=== PATIENT | female | born 1995 | race Caucasian/White ===

== ENCOUNTER 2022-09-08 00:41 | Day surgery (SDC) | payer OTHER, SELFPAY ==
[2022-09-07 08:31] VITALS: BMI 23.3
--- NOTE | 2022-09-07 08:35 | PC.NURSE ---
Report to the Outpatient Waiting Room, entrance under the green pavilion located off [facility], at time 1200 on date 09/08/22. Planned Procedure Time: 1400. Time changes happen often and if your time is changed the preop area will call you the afternoon before. - You and your visitor will be asked to self-screen and do not enter if you have any COVID symptoms. - We encourage only one visitor and NO visitors under age 16 are allowed at this time. Your visitor will receive communication by the phone number that is given day of service. - The patient visitor is requested to social distance or may leave the building when not with patient due to restrictions. - A mask is OPTIONAL within the hospital. Patients may have clear liquids (water, carbonated beverages, clear teas, apple juice) until 3 hours prior to surgery with a maximum of 20 ounces. - No food from midnight until time of surgery Take the following medications with a SIP of water the morning of surgery: NONE Medications to discontinue per physician: VITAMIN Date to take last dose: NO MORE UNTIL AFTER SURGERY Please no make-up, nail frisian, hairspray, perfume, deodorant, or body powder the day of surgery. No jewelry (including any body piercings) or valuables the day of surgery, leave them at home. Please take a shower or bath the night before, or the morning of, surgery with an antibacterial soap. Wear comfortable, loose fitting clothing. - Jewelry must be removed prior to entering the operating room. Rings and piercings that are not removed may be cut off. - The hospital will not accept responsibility for valuables. - Please leave all valuables, including medications, at home the day of surgery. If you are going home after surgery, a licensed petroleum transport driver must drive you home. - NO public transportation without another adult. - We recommend that an adult stay with you for 24 hours following discharge. - We also recommend that you do not drive, make important decision, drink alcoholic beverages, or take any drugs that were not prescribed by your health care provider for at least 24 hours after your discharge time. Follow any additional instructions given to you from your surgeon. If you or anyone in your household have experienced Covid symptoms in the past week, please notify your surgeon or the nurse liaison at the phone number below for possible testing. Telephone instructions given to PT - SUMIT AKBAR and asked if any additional questions and then verbalized understanding. Patient advised to call surgeon office or pre surgery nurse liaison [phone] if any additional questions.
--- NOTE | 2022-09-07 10:16 | PM.IMHP ---
H&P: HPI History of Present Illness Date/Time: 09/07/22 10:16 Chief Complaint: 1st trimester missed A/B Narrative: is a 26-year-old 1 para 0 with a missed A/B confirmed by ultrasound. Risks and benefits reviewed in full of suction dilatation curettage. [facility] Past Medical History Medical History Allergic rhinitis Anxiety Depression Dysuria Iron deficiency anemia Mild intermittent asthma without complication Pica in adults Urinary tract infection symptoms Vitamin D deficiency Family History Family History Father Depression Hypertension Sibling Asthma Social History Social History Smoking status: Never smoker Alcohol intake: former Alcohol use details: NOT RECENTLY Substance use: never Substance use type: does not use Living arrangements: with family Spiritual care concerns: No Meds Home Medications and Allergies Home Medications Medication Instructions Recorded Confirmed Type docosahexaenoic acid 200 mg 200 mg PO DAILY 09/07/22 09/07/22 History capsule ( DHA) Allergies Allergy/AdvReac Type Severity Reaction Status Date / Time clavulanic acid Allergy Intermediate RASH Verified 09/07/22 08:30 sulfamethoxazole Allergy Intermediate RASH Verified 09/07/22 08:30 amoxicillin Allergy Unknown unknown Verified 09/07/22 08:30 sulfamethizole Allergy Unknown unknown Verified 09/07/22 08:30 trimethoprim Allergy Unknown unknown Verified 09/07/22 08:30 Exam Const: General: cooperative, healthy appearing and comfortable Nutritional Appearance: average body habitus Orientation/consciousness: oriented to person, oriented to place and oriented to time Chest: Chest palpation & inspection: normal inspection of the chest Resp: Effort & Inspection: normal respiratory effort Cardio: Rate: regular rate Rhythm: regular rhythm Heart sounds: S1 normal heart sound present and S2 normal heart sound present GI: Inspection: normal to inspection : External Female Exam: normal external appearance Speculum Exam - Cervix: normal appearance of the cervix Bimanual exam- vagina & uterus: enlarged Bimanual Exam- Adnexa, other: normal adnexae Assessment and Plan Assessment and plan (1) Missed : Code(s): O02.1 - Missed Status: Acute Plan suction dilatation curettage
--- NOTE | 2022-09-08 10:04 | WPDANESEPPF ---
Anes - Initial Pre Proc Eval Procedure: Operation Date: 09/08/22 14:00 Proposed Procedures p Suction Dilation and Curettage - Collins Camacho MD <Josesito Barboza MD - Last Filed: 09/09/22 10:46> Date/Time: 09/08/22 10:04 <Josesito Barboza MD - Last Filed: 09/09/22 10:46> Surgeon: Collins Camacho MD <Josesito Barboza MD - Last Filed: 09/09/22 10:46> Pre Op Diagnosis: Missed AB <Josesito Barboza MD - Last Filed: 09/09/22 10:46> Patient Data Age: 26 Gender: F Height: 1.68 m Weight: 65.77 kg <Josesito Barboza MD - Last Filed: 09/09/22 10:46> Allergies Allergy/AdvReac Type Severity Reaction Status Date / Time clavulanic acid Allergy Intermediate RASH Verified 09/07/22 08:30 sulfamethoxazole Allergy Intermediate RASH Verified 09/07/22 08:30 amoxicillin Allergy Unknown unknown Verified 09/07/22 08:30 sulfamethizole Allergy Unknown unknown Verified 09/07/22 08:30 trimethoprim Allergy Unknown unknown Verified 09/07/22 08:30 <Josesito Barboza MD - Last Filed: 09/09/22 10:46> Home Medications Medication Instructions Recorded Confirmed Type docosahexaenoic acid 200 mg 200 mg PO DAILY 09/07/22 09/07/22 History capsule ( DHA) doxycycline hyclate 100 mg tablet 100 mg PO BID #6 tabs 09/08/22 Rx hydrocodone 5 mg-acetaminophen 325 1 tablet PO Q4H PRN pain #20 tabs 09/08/22 Rx mg tablet <Josesito Barboza MD - Last Filed: 09/09/22 10:46> Patient hx anesthesia problems: none <Eh Huston MD - Last Filed: 09/08/22 12:32> Family hx anesthesia problems: none <Eh Huston MD - Last Filed: 09/08/22 12:32> Results Review: All pre-operative results and documents have been reviewed as part of the pre-operative evaluation. <Josesito Barboza MD - Last Filed: 09/09/22 10:46> PMFSH Past Medical History Medical History: Medical History Allergic rhinitis Anxiety Depression Dysuria Iron deficiency anemia Mild intermittent asthma without complication Pica in adults Urinary tract infection symptoms Vitamin D deficiency <Josesito Barboza MD - Last Filed: 09/09/22 10:46> Family History Family History: Family History Father Depression Hypertension Sibling Asthma <Josesito Barboza MD - Last Filed: 09/09/22 10:46> Social History Social History: Social History Smoking status: Never smoker Alcohol intake: former Alcohol use details: NOT RECENTLY Substance use: never Substance use type: does not use Living arrangements: with family Spiritual care concerns: No <Josesito Barboza MD - Last Filed: 09/09/22 10:46> Anes - Eval Final PreProcedure Day of Procedure 09/08/22 10:04 <Josesito Barboza MD - Last Filed: 09/09/22 10:46> Patient weight: normal <Josesito Barboza MD - Last Filed: 09/09/22 10:46> Heart: regular rate and rhythm <Josesito Barboza MD - Last Filed: 09/09/22 10:46> Lungs: clear to auscultation and normal air movement <Josesito Barboza MD - Last Filed: 09/09/22 10:46> Airway: Mallampati scale class II <Josesito Barboza MD - Last Filed: 09/09/22 10:46> Neurological: alert and oriented <Josesito Barboza MD - Last Filed: 09/09/22 10:46> Last oral intake: >/= 8 hours <Josesito Barboza MD - Last Filed: 09/09/22 10:46> ASA classification: II <Josesito Barboza MD - Last Filed: 09/09/22 10:46> Emergent: no <Josesito Barboza MD - Last Filed: 09/09/22 10:46> Anesthetic plan: proceed <Josesito Barboza MD - Last Filed: 09/09/22 10:46> Anesthesia type and monitoring: general GIVS and LMA <Josesito Barboza MD - Last Filed: 09/09/22 10:46> Results Review: All pre-operative results and documents have been reviewed as part of t
--- NOTE | 2022-09-08 12:11 | WPDHPUPDATE1 ---
History and Physical Update Update Date/Time: 09/08/22 12:11 History and Physical has been reviewed, including an updated exam of the patient. There are NO changes in the patient's condition. Risks, benefits, and alternatives have been discussed and questions answered. Patient agrees to proceed with procedure.
[2022-09-08] MEDS: LACTATED RINGERS 1,000 ML 30 ML IV CONT (12:45)
[2022-09-08] MEDS: fentaNYL CITRATE INJ (*CRX) 100 MCG/2 ML VIAL 25 MCG IV PUSH ×4 (12:50→14:51)
[2022-09-08] MEDS: ACETAMINOPHEN 500 MG TABLET 1000 MG PO (12:50)
[2022-09-08 12:57] LABS: Hematocrit 40.4 % (37.0-47.0); Hemoglobin 13.7 g/dL (12.0-15.0)
[2022-09-08 13:17] VITALS: BP 118/65; PULSE 72; RESP 14; TEMP 37.7; O2SAT 100
[2022-09-08] MEDS: LIDOCAINE HCL 1% PF 30 ML VIAL 10 ML INFILTRATE (13:38)
--- NOTE | 2022-09-08 13:49 | W.PM.PROC2 ---
Procedure Note - Detailed Date of Procedure 09/08/22 Pre-op Diagnosis Missed AB Post-op Diagnosis Same Procedure Performed Suction dilatation curettage Surgeon Collins Camacho MD Anesthesia MAC and Local Indications a 26-year-old with first-trimester missed A/B Findings uterus sounded to 10cm. Tissue consistent with products of conception was present Description of Procedure patient was prepped draped in normal sterile fashion placed in the dorsal lithotomy position. Under excellent IV sedation weighted speculum placed posterior fornix vagina. Anterior lip of the cervix grasped with a single-tooth tenaculum. 2.5cc 1% xylocaine anesthesia placed at 2, 4, 8, 10 the cervix. Uterus sounded to 10cm. Serial dilatation with fragmented dilators performed followed by passage of the 10. Suction curette removing a moderate amount of placental tissue. When no further tissue removed the instruments were withdrawn. The good grating sound was heard the instruments were passed off the table patient was awakened went to recovery in satisfactory condition. All sponge, needle, instrument counts were correct. There were no immediate complications Estimated Blood Loss 25 Drains No Packing No Pathology Yes Complications No immediate complications Condition Stable Disposition PACU
[2022-09-08 13:53] VITALS: BP 113/67; PULSE 93; RESP 16; TEMP 37.3; O2SAT 99
[2022-09-08] MEDS: oxyCODONE HCL (*CRX) 5 MG TAB IR PO (14:14)
[2022-09-08 14:20] VITALS: BP 106/65; PULSE 93; RESP 16; O2SAT 100
--- NOTE | 2022-09-08 14:39 | SUR.PHASEII ---
PT IS O POSITIVE AND NO RHOGAM IS NEEDED
[2022-09-08 14:50] VITALS: BP 115/65; PULSE 79; RESP 16; O2SAT 99
[2022-09-08] MEDS: DOXYCYCLINE HYCLATE 100 MG TABLET PO (15:25)
== END 2022-09-08 15:15 | disposition home or self-care (01) ==
PROVIDERS: PCP Emergency Medicine; Visit Provider Obstetrics & Gynecology
PROC: (CPT 59820; principal; 2022-09-08 14:00)
DX: O02.1 Missed abortion (principal)
CPT/HCPCS: 59820; 36415; 85014; 85018; 85461; 88305; A9270; J2250; J2405; J2704; J3010; J7120

== ENCOUNTER 2022-09-12 12:03 | Emergency (ER) | payer OTHER, SELFPAY ==
[2022-09-12 12:28] VITALS: BP 130/82; PULSE 101; RESP 16; TEMP 36.4; O2SAT 100
--- NOTE | 2022-09-12 14:08 | ED.GENADULT ---
HPI - General Adult General Chief complaint: Allergic Reaction Stated complaint: Rash on abd, Time Seen by Provider: 09/12/22 12:47 History of Present Illness HPI narrative: This is a 26-year-old female presenting ED with a rash to her torso. Patient's symptoms started approximately last Monday. She underwent AD and C for a miscarriage . On Monday she still had the rash that she went to an urgent care and was prescribed some steroids. Monday she saw a different doctor who also give her a burst of steroids. The red rash has continued to spread and is itchy. Other than the rash the patient has no physical complaints. She denies any new exposures. She does state that she has sensitive skin. She denies any mucosal involvement. Related Data Home Medications Medication Instructions Recorded Confirmed docosahexaenoic acid 200 mg 200 mg PO DAILY 09/07/22 09/07/22 capsule ( DHA) Allergies Allergy/AdvReac Type Severity Reaction Status Date / Time clavulanic acid Allergy Intermediate RASH Verified 09/07/22 08:30 sulfamethoxazole Allergy Intermediate RASH Verified 09/07/22 08:30 amoxicillin Allergy Unknown unknown Verified 09/07/22 08:30 sulfamethizole Allergy Unknown unknown Verified 09/07/22 08:30 trimethoprim Allergy Unknown unknown Verified 09/07/22 08:30 Review of Systems Review of Systems: CONSTITUTIONAL: Denies night sweats. EYES: No eye pain ENT: Denies rhinorrhea CARDIOVASCULAR: Denies palpitations RESPIRATORY: Denies hemoptysis GASTROINTESTINAL: Denies hematemesis GENITOURINARY: Denies hematuria. SKIN: Admits rash MUSCULOSKELETAL: Denies myalgia. NEUROLOGIC: Denies weakness. PSYCHIATRIC: Denies delusions PMFSH Past Medical History Medical History Allergic rhinitis Anxiety Depression Dysuria Iron deficiency anemia Mild intermittent asthma without complication Pica in adults Urinary tract infection symptoms Vitamin D deficiency Family History Family History Father Depression Hypertension Sibling Asthma Social History Social History Smoking status: Never smoker Alcohol intake: former Alcohol use details: NOT RECENTLY Substance use: never Substance use type: does not use Spiritual care concerns: No Exam Narrative: APPEARANCE: No apparent distress. Head atraumatic. EYES: PERRLA/EOMI, NOSE: Normal no drainage NECK: Supple, Trachea midline RESPIRATORY: CTAB, No increased work of breathing. CARDIOVASCULAR: S1S2 appreciated ABDOMINAL: Soft, nontender, nondistended, MUSCULOSKELETAl: No obvious deformities NEURO: Alert. Moving 4/4 extremities SKIN:: patient has a erythematous confluent rash over her flanks bilaterally. PSYCHIATRIC: Normal affect Course Vital Signs Vital signs: Vital Signs Temperature 97.6 F 09/12/22 12:28 Pulse Rate 101 H 09/12/22 12:28 Respiratory Rate 16 09/12/22 12:28 Blood Pressure 130/82 09/12/22 12:28 Pulse Oximetry 100 09/12/22 12:28 Oxygen Delivery Room Air 09/12/22 12:28 Temperature 97.6 F 09/12/22 12:28 Pulse Rate 101 H 09/12/22 12:28 Respiratory Rate 16 09/12/22 12:28 Blood Pressure 130/82 09/12/22 12:28 Pulse Oximetry 100 09/12/22 12:28 Oxygen Delivery Room Air 09/12/22 12:28 Medical Decision Making [facility] Narrative Medical decision making narrative: this is a 26-year-old female presenting with an urticarial rash for the last week and half. She has no known triggers. She did have a miscarriage over the last week. She is not appear to be anaphylactic. There is no mucosal involvement. Her vital signs are stable and she is well-appearing otherwise.There are cases reported of urticarial rashes following due to hormonal changes. Patient has received several courses of steroids with no benefit she khang
[2022-09-12] MEDS: diphenhydrAMINE HCl CAP 25 MG CAPSULE PO (14:11)
[2022-09-12 14:32] LABS: Basophils Percent Auto 0.3 % (0.2-1.2); Eosinophils Absolute Auto 0.5 K/mm3 (0-0.3); Eosinophils Percent Auto 4.7 % (0-4.4); Hematocrit 39.4 % (37.0-47.0); Hemoglobin 12.9 g/dL (12.0-15.0); Immature Granulocyte Absolute 0.06 K/mm3 (0.00-0.031); Immature Granulocyte Percent A 0.6 % (0-0.5); Mean Corpuscular HGB Conc 32.7 g/dl (32-36); Mean Corpuscular Hemoglobin 30.7 pg (26-34); Mean Corpuscular Volume 93.8 fl (80-100); Monocytes Absolute Auto 0.3 K/mm3 (0.1-0.6); Neutrophils Absolute Auto 7.9 K/mm3 (1.3-6.7); Neutrophils Percent Auto 78.4 % (45.5-73.1); Platelet Count Result 256 k/mm3 (150-375)
[2022-09-12 14:38] LABS: Alanine Aminotransferase 73 U/L (6-35); Albumin Level 4.4 g/dL (3.5-5.1); Alkaline Phosphatase 65 U/L (38-126); Anion Gap 12 mmol/L (8-16); Aspartate Amino Transferase 52 U/L (14-36); Bilirubin,Total 0.3 mg/dL (0.2-1.3); Blood Urea Nitrogen 17 mg/dL (7-17); Calcium 8.7 mg/dL (8.4-10.2); Carbon Dioxide 28 mmol/L (22-30); Chloride 100 mmol/L (98-107); Estimated CRCL calculation 99 ml/min; Estimated Glomerular Filt Rate > 60; Glucose 114 mg/dL (65-110); Magnesium 2.1 mg/dL (1.6-2.3); Potassium 3.7 mmol/L (3.4-5.0); Sodium 140 mmol/L (137-145)
== END 2022-09-12 15:23 | disposition home or self-care (01) ==
PROVIDERS: Emergency Provider Emergency Medicine; PCP Emergency Medicine
DX: J45.20 Mild intermittent asthma, uncomplicated (principal); Z87.440 Personal history of urinary (tract) infections; E55.9 Vitamin D deficiency, unspecified; Z86.2 Personal history of diseases of the blood and blood-forming organs and certain disorders involving the immune mechanism
CPT/HCPCS: 36415; 80053; 83735; 85025; 99283; A9270

== ENCOUNTER 2023-06-05 19:25 | Outpatient (CLI) | payer OTHER, SELFPAY ==
[2023-06-05 20:23] LABS: Basophils Percent Auto 0.3 % (0.2-1.2); Eosinophils Absolute Auto 0.1 K/mm3 (0-0.3); Eosinophils Percent Auto 0.7 % (0-4.4); Hemoglobin 10.8 g/dL (12.0-15.0); Immature Granulocyte Absolute 0.04 K/mm3 (0.00-0.031); Immature Granulocyte Percent A 0.3 % (0-0.5); Lymphocytes Absolute Auto 2.83 K/mm3 (0.9-3.2); Lymphocytes Percent Auto 24.1 % (18.3-44.2); Mean Corpuscular HGB Conc 33.8 g/dl (32-36); Mean Corpuscular Hemoglobin 31.4 pg (26-34); Mean Platelet Volume 11.5 fl (7.4-10.4); Monocytes Absolute Auto 0.6 K/mm3 (0.1-0.6); Monocytes Percent Auto 4.7 % (2.6-8.5); Neutrophils Absolute Auto 8.2 K/mm3 (1.3-6.7); Neutrophils Percent Auto 69.9 % (45.5-73.1); Platelet Count Result 202 k/mm3 (150-375); Red Blood Count 3.44 M/mm3 (4.2-5.4); Red Cell Distribution Width 12.6 % (11.5-14.5); White Blood Count 11.7 K/mm3 (4.5-10.0)
[2023-06-05 20:30] LABS: Alanine Aminotransferase 17 U/L (6-35); Albumin Level 3.5 g/dL (3.5-5.1); Alkaline Phosphatase 66 U/L (38-126); Anion Gap 7 mmol/L (8-16); Aspartate Amino Transferase 23 U/L (14-36); Bilirubin,Total 0.2 mg/dL (0.2-1.3); Blood Urea Nitrogen 9 mg/dL (7-17); Carbon Dioxide 24 mmol/L (22-30); Chloride 104 mmol/L (98-107); Estimated Glomerular Filt Rate > 60; Glucose 91 mg/dL (65-110); Potassium 3.3 mmol/L (3.4-5.0); Sodium 135 mmol/L (137-145); Uric Acid 4.7 mg/dL (2.5-7.5)
[2023-06-05 20:35] LABS: Creatinine Urine 67.9 mg/dL; Total Protein Urine Random 13 mg/dL; Ur Ttl Prot Creatinine Ratio 0.19 mg/mg (0-0.20)
[2023-06-05] MEDS: BELLADONNA ALK/PHENOB ELIX 10 ML, MAG HYDROX/ALUMINUM HYD/SIMETH 30 ML, LIDOCAINE HCL 2... PO (21:00)
[2023-06-05 21:15] LABS: Appearance Urine Clear (Clear); Bilirubin Urine Negative (Negative); Blood Urine Negative (Negative); Color Urine Yellow (Yellow); Glucose Urine UA Negative (Negative); Ketones Urine Negative (Negative); Leukocyte Esterase Ur Negative LEU/UL (NEGATIVE); Nitrate Urine Negative (Negative); Protein Urine Negative (Negative); Specific Grav Ur 1.014 (1.001-1.035); Urobilinogen Urine 0.2 mg/dL (<2.0); pH Urine 6.5 (5.0-9.0)
[2023-06-05 21:22] LABS: Add Urine Microscopic? NO
--- NOTE | 2023-06-05 21:38 | PC.NURSE ---
1924 Pt arrived to unit after talking to Dr Higginbotham and being told to be evaluated. Pt states she has tried pepcid, nexium, tums, and peptobismol with no relief from her epigastric pain and that she vomited around 1800 but has kept food down since then. Pt has no complaints. 2011 Dr Cayden Camacho paged at this time 2015 Dr Cayden Camacho is informed of patient arrival and that Urine with PIH labs has been sent to lab. Dr Higginbotham said something to the patient about a possible ultrasound and Dr Cayden Camacho orders that if patient has already eaten she will need to return tomorrow with an empty stomach for a RUQ US and to schedule that, orders received for GI Cocktail PO once and to call back with lab results. 2103 Dr Cayden Camacho paged at this time 2107 Dr Cayden Camacho informed of lab results and that US is being scheduled and GI Cocktail administered. Orders to discharge pt to home and to keep appointment and get US tomorrow. 2114 Pt discharged to home with instruction to follow up in office with scheduled appointment and to return to hospital for US at 1030 tomorrow morning. Pt verbalizes understanding.
== END 2023-06-05 21:15 | disposition home or self-care (01) ==
PROVIDERS: PCP Emergency Medicine; Visit Provider Obstetrics & Gynecology
DX: O13.9 Gestational [pregnancy-induced] hypertension without significant proteinuria, unspecified trimester (principal); Z3A.00 Weeks of gestation of pregnancy not specified
CPT/HCPCS: 36415; 80053; 81003; 82570; 84156; 84550; 85025; 87086; 87088; 87147; A9270

== ENCOUNTER 2023-06-06 10:42 | Outpatient (CLI) | payer OTHER, SELFPAY ==
--- NOTE | ~2023-06-06 | US_ITS ---
Limited Abdominal Sonogram: Real-time sonographic imaging of the right upper quadrant was performed. Clinical History: Right upper quadrant pain Findings: The liver appears normal with no evidence of mass lesion or bile duct dilatation. Main por gutierrez vein demonstrates normal direction of flow. The gallbladder is well distended, and appears normal with no evidence of gallstone or wall thickening. The common bile duct measures 4 mm. The visualize d pancreas, aorta, and IVC are unremarkable. Impression: No significant abnormality seen. Reviewed, dictated and finalized at location M. Impression: No significant abnormality seen.
== END 2023-06-06 10:43 | disposition home or self-care (01) ==
LOC: ANHIMG 10:49
PROVIDERS: PCP Emergency Medicine; Visit Provider Obstetrics & Gynecology
DX: K82.9 Disease of gallbladder, unspecified (principal); R10.11 Right upper quadrant pain
CPT/HCPCS: 76705

== ENCOUNTER 2023-10-10 07:47 | Outpatient (CLI) | payer OTHER, SELFPAY ==
[2023-10-10 08:15] LABS: Hematocrit 33.9 % (37.0-47.0); Hemoglobin 10.5 g/dL (12.0-15.0); Mean Corpuscular Hemoglobin 26.4 pg (26-34); Mean Corpuscular Volume 85.2 fl (80-100); Mean Platelet Volume 11.7 fl (7.4-10.4); Platelet Count Result 222 k/mm3 (150-375); Red Blood Count 3.98 M/mm3 (4.2-5.4); Red Cell Distribution Width 13.9 % (11.5-14.5); White Blood Count 9.4 K/mm3 (4.5-10.0)
[2023-10-11 10:49] LABS: Rapid Plasma Reagin Non-Reactive (NonReactive)
== END 2023-10-10 07:48 | disposition home or self-care (01) ==
LOC: ANHLAB 07:48
PROVIDERS: PCP Emergency Medicine; Visit Provider Obstetrics & Gynecology
DX: Z34.93 Encounter for supervision of normal pregnancy, unspecified, third trimester (principal); Z3A.00 Weeks of gestation of pregnancy not specified
CPT/HCPCS: 36415; 85027; 86592; 86850; 86900; 86901

== ENCOUNTER 2023-10-11 05:29 | Inpatient (IN) | payer OTHER, SELFPAY ==
--- NOTE | 2023-10-10 06:24 | P.HP_ITS ---
H&P: HPI History of Present Illness Date/Time: 10/10/23 06:24 Chief Complaint: Breech presentation at term Narrative: this is a 27-year-old 2 para 039 weeks gestation breech presentation for primary section. She was offered external version and declined risks and benefits of section were reviewed in great detail. Her has been otherwise unremarkable [facility] Past Medical History Medical History Allergic rhinitis Anxiety Depression Dysuria Iron deficiency anemia Mild intermittent asthma without complication Pica in adults Urinary tract infection symptoms Vitamin D deficiency Family History Family History Father Depression Hypertension Sibling Asthma Social History Social History Smoking status: Never smoker Alcohol intake: former Alcohol use details: NOT RECENTLY Substance use: never Substance use type: does not use Living arrangements: with family Spiritual care concerns: No Meds Home Medications and Allergies Home Medications Medication Instructions Recorded Confirmed Type docosahexaenoic acid 200 mg 200 mg PO DAILY 09/07/22 09/07/22 History capsule ( DHA) cholecalciferol (vitamin D3) 50 50 mcg PO DAILY 09/21/23 09/21/23 History mcg (2,000 unit) capsule (Vitamin D3) prenat.vits,akanksha,fxb-tuuo-axsfh tablet 09/21/23 History Allergies Allergy/AdvReac Type Severity Reaction Status Date / Time clavulanic acid Allergy Intermediate RASH Verified 09/21/23 15:28 Exam Const: General: cooperative, healthy appearing and comfortable Nutritional Appearance: average body habitus Orientation/consciousness: oriented to person, oriented to place and oriented to time HENMT: Head: normal to inspection Resp: Effort & Inspection: normal respiratory effort Cardio: Rate: regular rate Rhythm: regular rhythm Heart sounds: S1 normal heart sound present and S2 normal heart sound present GI: Inspection: normal to inspection ( gravid soft uterus) Assessment and Plan Assessment and plan (1) Term : Code(s): Z34.90 - Encounter for supervision of normal , unspecified, unspecified trimester Status: Acute (2) Breech presentation: Code(s): O32.1XX0 - Maternal care for breech presentation, not applicable or unspecified Status: Acute Plan primary section
[2023-10-11] VITALS (42 sets, daily range): BP systolic 78–123; BP diastolic 38–99; PULSE 62–137; RESP 16–20; TEMP 36.2–37.4; O2SAT 98–100; BMI 30.9
--- NOTE | 2023-10-11 06:12 | WPDHPUPDATE1 ---
History and Physical Update Update Date/Time: 10/11/23 06:12 History and Physical has been reviewed, including an updated exam of the patient. There are NO changes in the patient's condition. Risks, benefits, and alternatives have been discussed and questions answered. Patient agrees to proceed with procedure.
--- NOTE | 2023-10-11 06:19 | LDADM ---
This patient, Margo Montenegro, was admitted to Labor/Delivery/Recovery 120 on 10/11/23 at 05:29. Plans for labor, pain management and were discussed with patient. Patient/family oriented to hospital policies and general routines including ID bracelet, bed and alarms, visiting hours, pain management, procedures, bathroom and other care routines, personal items, smoking policy, room service/diet and guest tray routines, security routines, and visiting hours. Patient/Family are encouraged to report perceived risks to care and to ask questions if they do not understand what they are told or what they should do. See OBIX for further documentation.
[2023-10-11] MEDS: LACTATED RINGERS 1,000 ML 125 ML IV CONT (06:54)
[2023-10-11] MEDS: ceFAZolin 2 GM/D5W 50 ML 2 GM/50 ML BAG IVPB (07:19)
--- NOTE | 2023-10-11 08:11 | P.PCNOB_ITS ---
OB - Delivery Note Procedure Delivery date: 10/11/23 Pre-op diagnosis: Other (Breech) Post-op Diagnosis: Same Induction method: None Delivery monitor: External FHT Procedure Performed: Primary Surgeon: Collins Camacho MD Anesthesia type: Spinal Description of Procedure/Findings: patient was prepped and draped in sterile fashion placed in spine position. Under anesthetic the abdomen was entered in Pfannenstiel fashion progressive layers to fascia. Fascia incised midline carried out fashion bilaterally. Underlying muscles sharply dissected. Parietal peritoneum a by Romi clamps and by sharp dissection carried superiorly and inferiorly dome bladder blade placed bladder blade returned a low-transverse incision made the breech delivered to. Legs were swept medially the arms were swept medially and the head delivered in the flexed position. Patient passed off the table given Apgars of 9 [id number] 9 [id number]. Cord blood was drawn placenta intact manually. Uterus delivered from the abdomen wrapped in a moist towel. After assuring no membranes or debris remained in the uterus, the uterus closed continuous running locking Vicryl from lateral edge to lateral edge followed by 2nd imbricating running locking 0 Vicryl from lateral edge to lateral edge. Hemostasis was assured. The ovaries and tubes appeared within normal limits uterus returned the abdomen. Uterine incision inspected 1 last time noted hemostatic and sprinkled with [place] term. Laps removed and accounted for. The fascia closed with continuous running 0 Vicryl from lateral edge to lateral edge. The subcutaneous layer closed with 4 Monocryl and glue blood loss was 505. All sponge, needle, instrument counts were correct. There were no immediate complications noted Specimen: No Estimated Blood Loss: 505 Drains: No Packing: No Pathology: None sent Complications: No immediate complications Condition: Stable Disposition: PACU [place] Date of : 10/11/23 Time of : 08:00 Weeks of gestation at delivery: 39 Infant gender: Female Weight (pounds): 7 Weight (ounces): 8 presentation: jenn breech position: Right Sacrum Anterior Placenta delivery description: Spontaneous Cord Vessel Description: 3 Vessels score one minute: 9 score five minutes: 9
--- NOTE | 2023-10-11 08:14 | PM.DS ---
DS: Admitting Diagnosis Discharge Date 10/13/2023 Admitting Diagnosis term breech DS: Discharge Diagnosis Discharge Diagnosis (1) Breech presentation: Code(s): O32.1XX0 - Maternal care for breech presentation, not applicable or unspecified Status: Acute (2) Term : Code(s): Z34.90 - Encounter for supervision of normal , unspecified, unspecified trimester Status: Acute DS: Summary Hospital Course Reason for hospitalization: patient was admitted for primary secondary to breech presentation at term Hospital Course: patient underwent an unremarkable section on 10/11/2023. [employer] course unremarkable. Remained afebrile. She was up, voiding without difficulty, eating regular diet, ambulating, generally without complaints. Time Spent with Patient Time attestation: Total time spent providing and/or coordinating discharge services: Exam Const: General: cooperative, healthy appearing and comfortable Nutritional Appearance: average body habitus Orientation/consciousness: oriented to person, oriented to place and oriented to time Resp: Effort & Inspection: normal respiratory effort Cardio: Rate: regular rate Rhythm: regular rhythm Heart sounds: S1 normal heart sound present and S2 normal heart sound present GI: Inspection: normal to inspection and incision ( Clean dry and intact) Discharge Plan Discharge Attending physician on discharge: Collins Biggs Discharging Clinician: Collins Biggs Patient Disposition: Home, Self-Care Activity: may shower, no straining and pelvic rest Diet: heart healthy Wound Care Instructions: follow printed instructions Patient Instructions: Antibiotic Form Stand Alone Forms: General Discharge Information Follow-up/Referrals: Collins Biggs MD [Physician] - Discharge Medications: New hydrocodone-acetaminophen 5-325 mg tablet 1 tablet PO Q4H PRN (Reason: pain) Qty: 30 0RF No Action DHA 200 mg Capsule 200 mg PO DAILY #2 Tablet cholecalciferol (vitamin D3) [Vitamin D3] 50 mcg (2,000 unit) Capsule 50 mcg PO DAILY Date of admission: 10/11/23 05:29 Primary Care Provider: Charanjit Go Admitting Provider: Collins Biggs Attending physician on admission: Collins Biggs Condition: Stable
[2023-10-11] MEDS: OXYTOCIN 30 UNITS/NS 500 ML 30 UNITS/500 ML BAG 125 UNITS IV CONT (09:07)
[2023-10-11] MEDS: LORATADINE 10 MG TABLET PO (10:22)
[2023-10-11] MEDS: KETOROLAC 30 MG/ML VIAL (*BKC) 15 MG IV PUSH (10:30)
--- NOTE | 2023-10-11 10:42 | PC.NURSE ---
Patient transferred to post room #291 via stretcher. Support person present. Oriented to unit, room, information board, rooming in, admission packet and security measures. Patient verbalizes understanding.
--- NOTE | 2023-10-11 11:31 | PC.NURSE ---
1130 - Purposefully rounded to assess needs after Primary RN requested patient to call out when feeding cues are visualized, and she had called out. Report received that infant was placed [id number]. Upon entering the room mother is sitting up in bed with visitors at bedside and being held by a visitor.
[2023-10-11] MEDS: DEXTROSE 5%/0.45% SOD CHL 1,000 ML 125 ML IV CONT (12:52)
[2023-10-11] MEDS: HYDROcodone/acetaminophen (*CRX) 5-325 MG TABLET 1 TAB PO ×2 (12:52→23:15)
[2023-10-11] MEDS: KETOROLAC 30 MG/ML VIAL (*BKC) IV PUSH (16:34)
[2023-10-11] MEDS: DOCUSATE SODIUM 100 MG CAPSULE PO (16:34)
[2023-10-11] MEDS: IBUPROFEN 600 MG TABLET PO (23:15)
[2023-10-12 04:20] VITALS: BP 102/60; PULSE 77; RESP 16; TEMP 37.1; O2SAT 98
[2023-10-12] MEDS: HYDROcodone/acetaminophen (*CRX) 5-325 MG TABLET 1 TAB PO ×4 (04:34→20:32)
[2023-10-12 05:56] LABS: Basophils Percent Auto 0.3 % (0.2-1.2); Eosinophils Absolute Auto 0.1 K/mm3 (0-0.3); Eosinophils Percent Auto 0.9 % (0-4.4); Hematocrit 27.8 % (37.0-47.0); Hemoglobin 8.6 g/dL (12.0-15.0); Immature Granulocyte Absolute 0.05 K/mm3 (0.00-0.031); Immature Granulocyte Percent A 0.5 % (0-0.5); Lymphocytes Absolute Auto 1.92 K/mm3 (0.9-3.2); Lymphocytes Percent Auto 19.6 % (18.3-44.2); Mean Corpuscular HGB Conc 30.9 g/dl (32-36); Mean Corpuscular Hemoglobin 26.6 pg (26-34); Mean Corpuscular Volume 86.1 fl (80-100); Mean Platelet Volume 11.9 fl (7.4-10.4); Monocytes Absolute Auto 0.5 K/mm3 (0.1-0.6); Monocytes Percent Auto 5.1 % (2.6-8.5); Neutrophils Absolute Auto 7.2 K/mm3 (1.3-6.7); Neutrophils Percent Auto 73.6 % (45.5-73.1); Platelet Count Result 196 k/mm3 (150-375); Red Blood Count 3.23 M/mm3 (4.2-5.4); Red Cell Distribution Width 14.2 % (11.5-14.5); White Blood Count 9.8 K/mm3 (4.5-10.0)
--- NOTE | 2023-10-12 06:47 | P.PNOB_ITS ---
OB - PN: Subj Subjective Date/time seen: 10/12/23 06:47 Patient comments: no complaints and pain well controlled baby status: doing well and nursing well OB - PN: Obj Data Labs 10/12/23 04:55 Labs: Laboratory Results - last 24 hr 10/12/23 04:55 WBC 9.8 RBC 3.23 L Hgb 8.6 L Hct 27.8 L MCV 86.1 MCH 26.6 MCHC 30.9 L RDW 14.2 Plt Count 196 MPV 11.9 H Immature Gran % (Auto) 0.5 Neut % (Auto) 73.6 H Lymph % (Auto) 19.6 [place] % (Auto) 5.1 Eos % (Auto) 0.9 Baso % (Auto) 0.3 Lymph # (Auto) 1.92 [place] # (Auto) 0.5 Eos # (Auto) 0.1 Baso # (Auto) 0.0 Abs Immat Gran (auto) 0.05 H Absolute Neuts (auto) 7.2 H Absolute Nucleated RBC 0.0 Nucleated RBC % 0.0 OB - PN A/P Plan day: 1 Plan: routine care Time Spent With Patient Time: Total time spent is greater than 50% in coordination of care (as documented) at patient's floor/unit and/or counseling patient: Time with patient: less than 15 minutes Exam Const: General: cooperative, healthy appearing and comfortable Nutritional Appearance: average body habitus Orientation/consciousness: oriented to perso n, oriented to place and oriented to time HENMT: Head: normal to inspection Resp: Effort & Inspection: normal respiratory effort Cardio: Rate: regular rate Rhythm: regular rhythm Heart sounds: S1 normal heart sound present and S2 normal heart sound present GI: Inspection: normal to inspection and incision (cdi)
[2023-10-12] MEDS: POLYSACCHARIDE IRON COMPLEX 150 MG CAPSULE PO ×2 (08:32→17:15)
[2023-10-12] MEDS: DOCUSATE SODIUM 100 MG CAPSULE PO ×2 (08:32→17:16)
[2023-10-12] MEDS: MULTIVIT/MIN/PREN/FOL AC/IRON TABLET 1 TAB PO (08:32)
[2023-10-12] MEDS: IBUPROFEN 600 MG TABLET PO ×2 (08:32→17:16)
[2023-10-12 08:35] VITALS: BP 110/51; PULSE 74; RESP 16; TEMP 37.1; O2SAT 98
[2023-10-12] MEDS: HYDROcodone/acetaminophen (*CRX) 10-325 MG TABLET 1 TAB PO (12:56)
--- NOTE | 2023-10-12 13:00 | PC.NURSE ---
Pt asking for an abdominal binder, binder given and shown how to wear. Pt verbalizes understanding.
--- NOTE | 2023-10-12 16:08 | WPDANLDPN2 ---
Anes-Prog Note L&D Date/Time: 10/12/23 16:08 Comfortable throughout: section Neuraxial method: spinal Epidural/Spinal procedure site: clean & non-tender Neuro status: Neuro function grossly intact. Cardiovascular status: normal Respiratory status: normal Airway patency: baseline Mental status: baseline Post-Op hydration status: normal Vital Signs: Last Vital Signs Temp 37.1 C 10/12/23 08:35 Pulse 74 10/12/23 08:35 Resp 16 10/12/23 08:35 BP 110/51 L 10/12/23 08:35 Pulse Ox 98 10/12/23 08:35 O2 Del Method Room Air 10/12/23 08:30 Pain score (VAS): 0/10 at this time. I/O: Intake & Output 10/12/23 10/12/23 10/12/23 07:59 15:59 23:59 Intake Total 1200 Output Total 2950 Balance -1750 Post-procedural complaints: none Patient feedback: Patient satisfied with anesthetic care.
--- NOTE | 2023-10-12 16:09 | WPDANLDNPN2 ---
Anes-Prog Note L&D-Neuraxial Date/Time: 10/12/23 16:09 Neuraxial medications: intrathecal PF morphine Opiod-related complaints: none Patient feedback: Patient satisfied with post-operative pain management.
--- NOTE | 2023-10-12 17:05 | PC.NURSE ---
[id number] Introductions were made, then consulted with patient to assess needs related to . Discussed with mother her?plans to feed?her infant, the?experience so far and that is with no pain to mother. Mother understands the suck/swallow appearance versus sucking to soothe. Infant has had plenty of voids and stools in life. RN changes another void diaper. Resources provided for inpatient and outpatient services with the feeding sheet, mom/baby guide and name written on the communication board. Mother voiced understanding of information and will call if there is a request for assistance. [phone] Mother called for a latch assessment. Infant demonstrated effective with frequent swallows. Mother denies pain and is confident to independently latch optimally without discomfort. Reminded mother to use good handwashing technique to prevent infection. Mother is feeding appropriately for growth of and understands stimulating infant to eat if needed. has had appropriate feedings in the last 24 hours meets the outcomes for weight, output, blood sugar and jaundice at this time. Mother states she is confident to continue effectively her at home, when to call for assistance, denies any additional assistance or education at this time. Reinforced understanding of milk production, transition of milk, signs of adequate intake, transition of stool, prevention/relief of engorgement, plugged ducts, mastitis, responsive watching for feeding cues, the different methods of stimulating infant to breastfeed 1-3 hours after the start of the last feeding, community resources, and when to call a provider using the resource of the mom and baby guide. Mother voiced understanding of the education shared. Reported to the Primary RN.
[2023-10-12 20:30] VITALS: BP 119/74; PULSE 74; RESP 16; TEMP 37.1
[2023-10-13] MEDS: HYDROcodone/acetaminophen (*CRX) 5-325 MG TABLET 1 TAB PO ×3 (00:28→09:37)
[2023-10-13] MEDS: IBUPROFEN 600 MG TABLET PO ×2 (00:29→09:37)
--- NOTE | 2023-10-13 07:13 | PM.OBPNVD ---
OB - PN: Subj Subjective Date/time seen: 10/13/23 07:13 Patient comments: no complaints and pain well controlled baby status: doing well and nursing well OB - PN: Obj Data Labs 10/12/23 04:55 OB - PN A/P Plan day: 2 Plan: routine care, discharge home and follow up 6 weeks (4) Time Spent With Patient Time: Total time spent is greater than 50% in coordination of care (as documented) at patient's floor/unit and/or counseling patient: Time with patient: less than 15 minutes Exam Const: General: cooperative, healthy appearing and comfortable Nutritional Appearance: average body habitus Orientation/consciousness: oriented to person, oriented to place and oriented to time HENMT: Head: normal to inspection Resp: Effort & Inspection: normal respiratory effort Cardio: Rate: regular rate Rhythm: regular rhythm Heart sounds: S1 normal heart sound present and S2 normal heart sound present GI: Inspection: normal to inspection and incision (cdi)
[2023-10-13 08:55] VITALS: BP 131/80; PULSE 96; RESP 18; TEMP 36.9; O2SAT 99
[2023-10-13] MEDS: MULTIVIT/MIN/PREN/FOL AC/IRON TABLET 1 TAB PO (09:37)
[2023-10-13] MEDS: POLYSACCHARIDE IRON COMPLEX 150 MG CAPSULE PO (09:37)
[2023-10-13] MEDS: DOCUSATE SODIUM 100 MG CAPSULE PO (09:37)
--- NOTE | 2023-10-13 14:18 | PC.NURSE ---
[id number] Introductions were made, then consulted with patient to assess needs related to . Discussed with mother her?plans to feed?her infant and the?experience so far. Mother denies need for assistance. independently without nipple soreness. Denies concerns with baby regarding positioning or latch on. Resources provided for inpatient and outpatient services with the feeding sheet, mom/baby guide and name written on the communication board. Mother voiced understanding of information and will call if there is a request for assistance. Reported to the Primary RN.
[2023-10-14 09:22] VITALS: BP 129/70; PULSE 78; RESP 18; TEMP 36.9; O2SAT 100
== END 2023-10-13 11:55 | disposition home or self-care (01) | DRG 788 ==
LOC: ANHLDR 06:14 → ANHOB2 10:48
PROVIDERS: Admitting Provider Obstetrics & Gynecology; PCP Emergency Medicine; Visit Provider Obstetrics & Gynecology
PROC: 10D00Z1 Extraction of Products of Conception, Low, Open Approach (ICD-10-PCS; CPT 59514; principal; 2023-10-11 07:30)
DX: O32.1XX0 Maternal care for breech presentation, not applicable or unspecified (principal); Z37.0 Single live birth; Z3A.39 39 weeks gestation of pregnancy; O99.824 Streptococcus B carrier state complicating childbirth
CPT/HCPCS: 36415; 85025; 85027; 86592; 86850; 86900; 86901; A9270; J0690; J1885; J2274; J2371; J2590; J7120

== ENCOUNTER 2024-09-14 12:38 | Observation (INO) | payer OTHER, SELFPAY ==
[2024-09-14] VITALS (8 sets, daily range): BP systolic 91–125; BP diastolic 51–71; PULSE 89–120; RESP 16–20; TEMP 36.6–37.9; O2SAT 98–100; BMI 21.2
--- NOTE | ~2024-09-14 | US_ITS ---
EXAMINATION: US soft tissue LE LT DATE: 09/15/2024 13:48 INDICATION: Palpable right infrapatellar region of swelling and erythema. TECHNIQUE: Multiple grayscale and Doppler ultrasound images of the left and patellar region of concer n were obtained. COMPARISON: None FINDINGS: At the region of concern there is soft tissue swelling with increased thickness and reticulated hypoe choic appearance to the subcutaneous tissues at the region of concern consistent with prominent edema and/or cellulitis. No discrete fluid collections to suggest abscess or bursitis. IMPRESSION: 1. Left infrapatellar subcutaneous edema versus cellulitis without discrete abscess or bursal fluid c ollection. Reviewed, dictated and finalized at location A. [facility] IMPRESSION: 1. Left infrapatellar subcutaneous edema versus cellulitis without discrete abs cess or bursal fluid collection.
[2024-09-14] MEDS: ceFAZolin 1 GM/NS 50 ML 1 GM/50 ML BAG IVPB ×2 (14:50→21:55)
[2024-09-14 14:59] LABS: Basophils Percent Auto 0.1 % (0.2-1.2); Hematocrit 37.3 % (37.0-47.0); Immature Granulocyte Absolute 0.07 K/mm3 (0.00-0.031); Immature Granulocyte Percent A 0.5 % (0-0.5); Lymphocytes Absolute Auto 0.44 K/mm3 (0.9-3.2); Mean Corpuscular HGB Conc 34.9 g/dl (32-36); Mean Corpuscular Hemoglobin 31.9 pg (26-34); Mean Corpuscular Volume 91.6 fl (80-100); Mean Platelet Volume 11.4 fl (7.4-10.4); Monocytes Absolute Auto 0.2 K/mm3 (0.1-0.6); Monocytes Percent Auto 1.6 % (2.6-8.5); Neutrophils Percent Auto 94.8 % (45.5-73.1); Platelet Count Result 218 k/mm3 (150-375); Red Blood Count 4.07 M/mm3 (4.2-5.4); Red Cell Distribution Width 12.2 % (11.5-14.5); White Blood Count 14.8 K/mm3 (4.5-10.0)
[2024-09-14 15:10] LABS: Anion Gap 11 mmol/L (4-12); Blood Urea Nitrogen 11 mg/dL (7-17); Calcium 9.6 mg/dL (8.4-10.2); Carbon Dioxide 24 mmol/L (22-30); Chloride 102 mmol/L (98-107); Estimated CRCL calculation 79 ml/min; Estimated Glomerular Filt Rate > 60; Glucose 142 mg/dL (65-110); Potassium 3.9 mmol/L (3.4-5.0); Sodium 137 mmol/L (137-145)
--- NOTE | 2024-09-14 15:33 | ED.EXTPRO ---
HPI - Extremity Problem General Chief complaint: Extremity Problem,Nontraumatic Stated complaint: left knee Time Seen by Provider: 09/14/24 14:02 History of Present Illness HPI Narrative: 23-year-old female with history of ADHD, anxiety and depression presents emergency department for redness to her left leg for 1 day. Patient states she went to urgent care yesterday was diagnosed with cellulitis, prescribed Keflex And prednisone. States she took 4 doses of Keflex in the redness has worsened which prompted her to come to the ED. She states yesterday the area of redness is about the size of a quarter, today it is 7 x 8 cm. she this area is warm and tender to the touch. She denies fever but does report associated malaise. Of note, she states she had a positive at home test yesterday morning. LMP August 15. she is . She denies vaginal bleeding or discharge, leakage of fluid or abdominal pain. Related Data Home Medications Medication Instructions Recorded Confirmed cholecalciferol (vitamin D3) 50 50 mcg PO DAILY 09/21/23 07/19/24 mcg (2,000 unit) capsule (Vitamin D3) prenat.vits,akanksha,ire-ywji-bblvy tablet 09/21/23 07/19/24 omega 8-ymn-jct-fish oil 60 mg-90 1 cap PO DAILY 07/19/24 mg-500 mg capsule Allergies Allergy/AdvReac Type Severity Reaction Status Date / Time clavulanic acid Allergy Intermediate RASH Verified 07/19/24 09:57 Review of Systems Review of Systems: All systems reviewed & are unremarkable except as noted in HPI and below PMFSH Past Medical History Medical History Allergic rhinitis Anxiety Depression Dysuria Iron deficiency anemia Mild intermittent asthma without complication Pica in adults Urinary tract infection symptoms Vitamin D deficiency Family History Family History Father Depression Hypertension Sibling Asthma Social History Social History Smoking status: Never smoker Alcohol intake: former Alcohol use details: NOT RECENTLY Substance use: never Substance use type: does not use Do You Feel Safe in your Home?: Yes Lack of Transportation: No Lack of Food: Never True Current Housing: I Have Housing Concerned About Future Housing: No Difficulty Paying Gas/Electric Bills: No Difficulty Paying for Meds: No Currently Unemployed: No Education: Bachelor's Degree Difficulty w/ Childcare or Family Care: No Living arrangements: with family Spiritual care concerns: No Exam Narrative: GENERAL: Well-appearing, well-nourished, and in no acute distress. HEAD: Normocephalic, atraumatic. EYES: PERRLA and EOMI. ENT: Nares clear, no rhinorrhea or epistaxis. Mucous membranes moist. NECK: Supple. CHEST: Clear to auscultation. No respiratory distress. HEART: Regular rate and rhythm. No murmur heard. Normal peripheral pulses. ABDOMEN: Soft, nontender, nondistended, normal active bowel sounds. EXTREMITIES: Normal range of motion. No edema. SKIN: 7 x 8 cm annular area of warmth and blanching erythema to the anterior proximal Left tibia. No purulence, vesicles or crepitus. Area of erythema does not extend over the joint line, there is no erythema or tenderness to the bursa. Patient has full active and passive range of motion of the knee without difficulty. DP pulses 2+. Sensation intact. NEURO: No focal deficits. Alert and oriented x3 Course Vital Signs Vital signs: Vital Signs Temperature 97.9 F 09/14/24 12:55 Pulse Rate 105 H 09/14/24 12:55 Respiratory Rate 17 09/14/24 12:55 Blood Pressure 125/71 09/14/24 12:55 Pulse Oximetry 100 09/14/24 12:55 Oxygen Delivery Room Air 09/14/24 12:55 Temperature 99.4 F 09/14/24 17:30 Pulse Rate 102 H 09/14/24 17:30 Respiratory Rate 19 09/14/24 17:30 Blood Pressure 91/51 L 09/14/24 17:30 Pulse Oximetry 98 09/14/24 17:30 Oxygen Delivery Room Air 09/14/24 12:55 MDM - Extremity (Nontraumatic) MDM Narrative Medical decision making narrative: 28-year-old female who is currently 4 weeks , , presents to the emergency department for redness to her left leg for 1 day. patient was evaluated in urgent care yesterday was prescribed Keflex. She has taken 4 doses, however her erythema continues to spread. Triage vitals are stable with a mild tachycardia 105. She is afebrile nontoxic appearing. Exam is significant for 7 x 8 cm area of cellulitis to the left proximal anterior tibia. There is no edema or evidence of compartment syndrome. The cellulitis does not extend over the joint line. She has no difficulty with active and passive range of motion and no effusion to the knee appreciated. Exam is not consistent with septic arthritis and is most consistent with cellulitis. Her lab work reveals a leukocytosis of 14.8. Chemistries are unremarkable. She did have a elevated temperature of a 100.3? and was given Tylenol fluids as well as an IV dose of cefazolin. She remained tachycardic around 110 and is given another round of fluids without improvement. shared decision making regarding disposition today. She does meet sepsis criteria with tachycardia, leukocytosis and source of infection. Her lactic acid is normal at 1.2. Patient would like to be admitted for further management. Discussed case with hospitalist [employer], Kalyani, who agrees to admission. Lab Data 09/14/24 14:51 09/14/24 14:51 Labs: Lab Results 09/14/24 09/14/24 Range/Units 14:51 16:56 WBC 14.8 H (4.5-10.0) K/mm3 RBC 4.07 L (4.2-5.4) M/mm3 Hgb 13.0 D (12.0-15.0) g/dL Hct 37.3 (37.0-47.0) % MCV 91.6 (80-100) fl MCH 31.9 (26-34) pg MCHC 34.9 (32-36) g/dl RDW 12.2 (11.5-14.5) % Plt Count 218 (150-375) k/mm3 MPV 11.4 H (7.4-10.4) fl Immature Gran % (Auto) 0.5 (0-0.5) % Neut % (Auto) 94.8 H (45.5-73.1) % Lymph % (Auto) 3.0 L (18.3-44.2) % [place] % (Auto) 1.6 L (2.6-8.5) % Eos % (Auto) 0.0 (0-4.4) % Baso % (Auto) 0.1 L (0.2-1.2) % Lymph # (Auto) 0.44 L (0.9-3.2) K/mm3 [place] # (Auto) 0.2 (0.1-0.6) K/mm3 Eos # (Auto) 0.0 (0-0.3) K/mm3 Baso # (Auto) 0.0 (0.0-0.1) K/mm3 Abs Immat Gran (auto) 0.07 H (0.00-0.031) K/mm3 Absolute Neuts (auto) 14.0 H (1.3-6.7) K/mm3 Absolute Nucleated RBC 0.000 (0.0-0.012) K/mm3 Nucleated RBC % 0.0 (0.0-0.2) % Sodium 137 (137-145) mmol/L Potassium 3.9 (3.4-5.0) mmol/L Chloride 102 (98-107) mmol/L Carbon Dioxide 24 (22-30) mmol/L Anion Gap 11 (4-12) mmol/L BUN 11 (7-17) mg/dL Creatinine 0.80 (0.7-1.0) mg/dL Estim Creat Clear Calc 79 ml/min Estimated GFR > 60 (59 - ) Glucose 142 H (65-110) mg/dL Lactic Acid 1.2 (0.7-2.0) mmol/L Calcium 9.6 (8.4-10.2) mg/dL Discharge Plan Discharge Clinical Impression: Cellulitis Qualifiers: Site of cellulitis: extremity Site of cellulitis of extremity: lower extremity Laterality: left Qualified Code(s): L03.116 - Cellulitis of left lower limb Sepsis Qualifiers: Sepsis type: sepsis due to unspecified organism Sepsis acute organ dysfunction status: without acute organ dysfunction Qualified Code(s): A41.9 - Sepsis, unspecified organism Patient Disposition: Still a Patient Condition: Stable Prescriptions: No Action omega 5-hkw-lyz-fish oil 60-90-500 mg capsule 1 cap PO DAILY prenat.vits,akanksha,qdc-jbrv-uktnv Tablet cholecalciferol (vitamin D3) [Vitamin D3] 50 mcg (2,000 unit) Capsule 50 mcg PO DAILY lisdexamfetamine [Vyvanse] 20 mg capsule 20 mg PO BID Qty: 60 0RF Follow-up/Referrals: Charanjit Go MD [Primary Care Provider] -
[2024-09-14] MEDS: SODIUM CHLORIDE 0.9% IV 1,000 ML 999 ML IV CONT ×2 (15:45→16:56)
[2024-09-14] MEDS: ACETAMINOPHEN 500 MG TABLET 1000 MG PO (15:46)
[2024-09-14 17:11] LABS: Lactic Acid Reflex 1.2 mmol/L (0.7-2.0)
--- NOTE | 2024-09-14 18:15 | P.HP_ITS ---
H&P: HPI History of Present Illness Date/Time: 09/14/24 18:15 Chief Complaint: Left Knee Pain Narrative: 28 y/o F presents here with left knee pain and redness with PMH of ADHD. The patient presents here from home for further evaluation of left knee pain, swelling, and redness. Symptoms initially were discovered yesterday morning. She denies precipitating trauma or wound to same area. She sought care at [facility] in [place]. There she was diagnosed with cellulitis and prescribed Keflex and prednisone. She has taken 4 doses of the abx and 1 dose of the prednisone. Despite initiation of antibiotics, the patient reports the erythema has spread from approximately a quarter-sized to 7x9 cm. She denies associated fever, but has developed body aches and chills for which she took T ylenol which partially to fully relieved the symptoms. When the Tylenol began to wear off overnight she developed chills/body aches again and since spiked a fever of 100.3F today. The patient also reports she is newly (found out yesterday) with a last menstrual period of 08/15/24 with TORI of 05/22/25. . Patient has hx of ADHD, has stopped medication since discovering . Initial VS at presentation: 97.9? F, HR 105, RR 17, 125/71, and 100% on RA. ED workup showed: WBC 14.8, no anemia, no significant electrolyte derangements, creatinine 0.8 and GFR >60, lactic 1.2 and glucose 142. Review of Systems Review of Systems: All systems reviewed & are unremarkable except as noted in HPI and below PMFSH Past Medical History Medical History (Updated 09/14/24 @ 18:19 by Kalyani Linda APRN) Allergic rhinitis Anxiety Attention Deficit Hyperactivity Disorder (ADHD) Depression Dysuria Iron deficiency anemia Mild intermittent asthma without complication Pica in adults Vitamin D deficiency Family History Family History Father Depression Hypertension Sibling Asthma Social History Social History Smoking status: Never smoker Alcohol intake: former Alcohol use details: NOT RECENTLY Substance use: never Substance use type: does not use Do You Feel Safe in your Home?: Yes Lack of Transportation: No Lack of Food: Never True Current Housing: I Have Housing Concerned About Future Housing: No Difficulty Paying Gas/Electric Bills: No Difficulty Paying for Meds: No Currently Unemployed: No Education: Bachelor's Degree Difficulty w/ Childcare or Family Care: No Living arrangements: with family Spiritual care concerns: No Meds Home Medications and Allergies Home Medications Medication Instructions Recorded Confirmed Type cholecalciferol (vitamin D3) 50 50 mcg PO DAILY 09/21/23 07/19/24 History mcg (2,000 unit) capsule (Vitamin D3) prenat.vits,akanksha,pdo-jkoh-eudpl tablet 09/21/23 07/19/24 History omega 0-jzb-lxq-fish oil 60 mg-90 1 cap PO DAILY 07/19/24 History mg-500 mg capsule lisdexamfetamine 20 mg capsule 20 mg PO BID #60 caps 09/09/24 Rx (Vyvanse) Allergies Allergy/AdvReac Type Severity Reaction Status Date / Time clavulanic acid Allergy Intermediate RASH Verified 07/19/24 09:57 Vital Signs Vital Signs - 24 hr 09/14/24 12:55 09/14/24 15:34 09/14/24 15:45 Temperature 97.9 F 100.3 F H Pulse Rate 105 H 113 H Respiratory Rate 17 17 Blood Pressure 125/71 109/68 Pulse Oximetry 100 100 Oxygen Delivery Room Air 09/14/24 16:45 09/14/24 17:30 Temperature 98.7 F 99.4 F Pulse Rate 120 H 102 H Respiratory Rate 19 19 Blood Pressure 108/55 L 91/51 L Pulse Oximetry 98 98 Oxygen Delivery Exam Const: General: comfortable and no acute distress Other: , female, nontoxic appearance HENMT: Face/Nose/Sinus: Normal nares present Mouth: Yes moist mucous membranes Eyes: General: appearance normal, both eyes and all related structures Sclera: sclerae normal Pupils: Equal, round and reactive pupils present EOM: EOMs intact bilaterally Resp: Effort & Inspection: normal respiratory effort Auscultation: clear to auscultation bilaterally Cardio: Rate: regular rate Rhythm: regular rhythm Other: S1-S2 present without murmur, rub, ectopy Skin: Other: Erythema and tenderness just distal to left knee measuring approximately 7x9 cm, no open wounds or drainage. Neuro: Speech: normal speech Motor exam (neuro): 5/5 motor strength present throughout Sensory Exam: normal sensation Other: A&O x4 Extrem: General: normal exam except as noted Psych: Mental Status: mental status grossly normal Affect: normal affect Other: good insight and judgment, pleasant H&P: Results Labs Labs: Short CBC 09/14/24 Range/Units 14:51 WBC 14.8 H (4.5-10.0) K/mm3 Hgb 13.0 D (12.0-15.0) g/dL Hct 37.3 (37.0-47.0) % Plt Count 218 (150-375) k/mm3 BMP 09/14/24 14:51 Sodium 137 Potassium 3.9 Chloride 102 Carbon Dioxide 24 BUN 11 Creatinine 0.80 Glucose 142 H Calcium 9.6 Assessment and Plan Assessment and plan (1) Sepsis: Qualifiers: Sepsis acute organ dysfunction status: without acute organ dysfunction Sepsis type: sepsis due to unspecified organism Qualified Code(s): A41.9 - Sepsis, unspecified organism Code(s): A41.9 - Sepsis, unspecified organism Status: Acute Assessment and Plan: - meets SIRS criteria: HR, WBC - lactic acid: 1.2 - 30 mL/kg = 1700, given 2L bolus - suspected source: cellulitis - started on cefazolin - blood cultures drawn on 09/14, follow - monitor heart rate and temp, remains tachycardic despite 2L of fluid - area marked, monitor for spread of erythema (2) Cellulitis: Qualifiers: Laterality: left Site of cellulitis: extremity Site of cellulitis of extremity: lower extremity Qualified Code(s): L03.116 - Cellulitis of left lower limb Code(s): L03.90 - Cellulitis, unspecified Status: Acute Assessment and Plan: - started on cefazolin on 09/14 - analgesic antipyretic p.r.n. - monitor labs, add CRP (3) Elevated blood sugar: Code(s): R73.9 - Hyperglycemia, unspecified Status: Acute Assessment and Plan: - initial glucose 142 - add A1C Plan Diet: regular GI Prophylaxis: not currently indicated DVT Prophylaxis: low risk Lines: peripheral Code Status: full code Quality If No VTE Prophylaxis Answer both mechanical and pharmacologic: Reason no mechanical VTE proph: low risk/not indicated Reason no pharmacologic proph: low risk/not indicated Hospitalist MIPS Advance Care Plan I have confirmed that the patient's Advanced Care Plan is present, code status is documented, or surrogate decision maker is listed in patient medical record.: Yes Medication Reconciliation I have utilized all available resources to obtain, update and review the patients current medications (includes all prescriptions, OTC, herbals, cannabis, and nutritional supplements).: Yes
--- NOTE | 2024-09-14 21:36 | ADMGEN ---
This patient, Margo Montenegro, was admitted to 3 Med Surg Room 319-01. Patient/family oriented to hospital policies and general routines including ID bracelet, bed and alarms, visiting hours, pain management, procedures, bathroom and other care routines, personal items, smoking policy, room service/diet, and visiting hours. Information on how to activate the Rapid Response Team has been discussed. Patient/Family are encouraged to report perceived risks to care and to ask questions if they do not understand what they are told or what they should do.
[2024-09-14] MEDS: ACETAMINOPHEN 325 MG TABLET 650 MG PO (22:15)
[2024-09-15] VITALS (7 sets, daily range): BP systolic 102–111; BP diastolic 56–58; PULSE 77–90; RESP 12–20; TEMP 36.6–37.7; O2SAT 99–100
--- NOTE | 2024-09-15 01:34 | PC.NURSE ---
Daylight Savings Time For Daylight Savings Time Ending in the Fall - Clocks are moved back. For Daylight Savings Time Beginning in the Spring - Clocks are moved ahead. For [facility], the time of change occurs at 0200 hrs. Time is taken from the traffic observer. This entry on the patient's chart recognizes the change in time reflected during documentation. Example: 2 entries for vital signs may be charted for 0200 hrs.
[2024-09-15] MEDS: ceFAZolin 1 GM/NS 50 ML 1 GM/50 ML BAG IVPB ×3 (05:54→21:52)
[2024-09-15] MEDS: ACETAMINOPHEN 325 MG TABLET 650 MG PO ×3 (05:56→17:50)
[2024-09-15 07:20] LABS: Basophils Percent Auto 0.4 % (0.2-1.2); Eosinophils Percent Auto 0.3 % (0-4.4); Hematocrit 32.6 % (37.0-47.0); Hemoglobin 11.1 g/dL (12.0-15.0); Immature Granulocyte Absolute 0.05 K/mm3 (0.00-0.031); Immature Granulocyte Percent A 0.5 % (0-0.5); Lymphocytes Absolute Auto 1.43 K/mm3 (0.9-3.2); Lymphocytes Percent Auto 13.8 % (18.3-44.2); Mean Corpuscular Hemoglobin 31.6 pg (26-34); Mean Corpuscular Volume 92.9 fl (80-100); Mean Platelet Volume 11.2 fl (7.4-10.4); Monocytes Absolute Auto 0.6 K/mm3 (0.1-0.6); Monocytes Percent Auto 6.2 % (2.6-8.5); Neutrophils Absolute Auto 8.2 K/mm3 (1.3-6.7); Neutrophils Percent Auto 78.8 % (45.5-73.1); Platelet Count Result 182 k/mm3 (150-375); Red Blood Count 3.51 M/mm3 (4.2-5.4); Red Cell Distribution Width 12.7 % (11.5-14.5); White Blood Count 10.4 K/mm3 (4.5-10.0)
[2024-09-15 08:48] LABS: Anion Gap 10 mmol/L (4-12); Blood Urea Nitrogen 7 mg/dL (7-17); Calcium 8.7 mg/dL (8.4-10.2); Carbon Dioxide 22 mmol/L (22-30); Chloride 107 mmol/L (98-107); Estimated CRCL calculation 112 ml/min; Estimated Glomerular Filt Rate > 60; Glucose 170 mg/dL (65-110); Potassium 3.2 mmol/L (3.4-5.0); Sodium 139 mmol/L (137-145)
[2024-09-15 09:06] LABS: CRP 14.1 mg/dL (<1.0)
--- NOTE | 2024-09-15 09:17 | PM.IMPN ---
Progress Note: A&P Assessment and Plan (1) Sepsis: Qualifiers: Sepsis acute organ dysfunction status: without acute organ dysfunction Sepsis type: sepsis due to unspecified organism Qualified Code(s): A41.9 - Sepsis, unspecified organism Code(s): A41.9 - Sepsis, unspecified organism Status: Acute Assessment and Plan: - meets SIRS criteria: HR, WBC - lactic acid: 1.2 - 30 mL/kg = 1700, given 2L bolus - suspected source: cellulitis - started on cefazolin - blood cultures drawn on 09/14, pending - monitor heart rate, no longer tachycardic - area marked, monitor for spread of erythema - Monitor serum electrolytes, CBC, WBC, temperature curve and follow cultures (2) Cellulitis: Qualifiers: Laterality: left Site of cellulitis: extremity Site of cellulitis of extremity: lower extremity Qualified Code(s): L03.116 - Cellulitis of left lower limb Code(s): L03.90 - Cellulitis, unspecified Status: Acute Assessment and Plan: - started on cefazolin on 09/14 - CRP 14.1, recheck in the am - US LE: Left infrapatellar subcutaneous edema versus cellulitis without discrete abscess or bursal fluid collection. - Monitor vital signs, I&Os - Monitor serum electrolytes, CBC, cultures, WBC and temp curve (3) Elevated blood sugar: Code(s): R73.9 - Hyperglycemia, unspecified Status: Acute Assessment and Plan: - initial glucose 142 - A1c 5.2 Plan Diet: regular GI Prophylaxis: not currently indicated DVT Prophylaxis: low risk Lines: peripheral Code Status: full code Time Spent With Patient Time with patient: 25 - 35 minutes Subjective Date/time seen: 09/15/24 09:17 Interval history: 28 y/o female with PMH of ADHD presents to the hospital with left knee pain and redness. The patient also reports she is newly (found out yesterday) with a last menstrual period of 08/15/24 with TORI of 05/22/25. . Patient is pleasant lying comfortably in bed. The erythema of the lower extremity has since spread slightly past the prior markings. she endorses increased pain with palpation. She denies any tingling/ numbness to the lower extremity. She denies any recent trauma or wounds to the area. She has no other complaints at this time. Review of Systems Review of Systems: All systems reviewed & are unremarkable except as noted in HPI and below Exam Narrative: AF HR 84 RR 20 SpO2 100 BP 102/57 General: well nourished, well-developed female in no acute respiratory distress who is nontoxic appearing, lying semi recumbent in bed. HEENT: Normocephalic. Atraumatic. Chest: Lungs are clear to auscultation bilaterally. No wheezes or crackles. CV: Heart was regular rate and rhythm. S1-S2. No murmurs, gallops, or rubs. Ext: Worsening redness, extending past prior FUNERAL DIRECTOR/EMBALMER lines of the left lower extremity just distal to the knee. Tenderness to palpation. No warmth noted. No open wounds. 2+ DP pulses bilaterally. Neuro: Patient is alert. Speech is clear. Psych: Normal mood and affect. Patient is pleasant and cooperative. Objective Data Vital Signs Vital Signs: Vital Signs - 24 hr 09/14/24 12:55 09/14/24 15:34 09/14/24 15:45 Temperature 97.9 F 100.3 F H Pulse Rate 105 H 113 H Respiratory Rate 17 17 Blood Pressure 125/71 109/68 Pulse Oximetry 100 100 Oxygen Delivery Room Air Fraction of Inspired Oxygen 09/14/24 16:45 09/14/24 17:30 09/14/24 18:16 Temperature 98.7 F 99.4 F Pulse Rate 120 H 102 H 109 H Respiratory Rate 19 19 16 Blood Pressure 108/55 L 91/51 L 117/60 Pulse Oximetry 98 98 99 Oxygen Delivery Fraction of Inspired Oxygen 09/14/24 18:54 09/14/24 20:58 09/15/24 06:00 Temperature 98.1 F 98.4 F 99.5 F Pulse Rate 110 H 89 84 Respiratory Rate 16 20 20 Blood Pressure 108/67 104/55 L 102/57 L Pulse Oximetry 99 99 99 Oxygen Delivery Fraction of Inspired Oxygen 09/15/24 08:31 Temperature Pulse Rate Respiratory Rate Blood Pressure Pulse Oximetry 100 Oxygen Delivery Room Air Fraction of Inspired Oxygen 21 Intake/Output Intake/Output: Intake & Output 09/12/24 09/13/24 09/14/24 09/15/24 23:59 23:59 23:59 22:59 Intake Total 2100 530 Balance 2100 530 Meds/Results Medications: Active Medications Generic Name Dose Route Start Last Admin Trade Name Marvinq PRN Reason Stop Dose Admin Acetaminophen 650 mg 09/14/24 18:13 09/15/24 05:56 Acetaminophen 325 Mg Tablet PO 650 mg Q4H PRN Administration Mild Pain (1-3) or Fever Cefazolin Sodium 1 gm in 50 mls @ 100 mls/hr 09/14/24 22:00 09/15/24 06:24 Ancef 1 Gm/Ns 50 Ml IVPB Infused Q8H ROBBY Infusion Potassium Chloride 40 meq 09/15/24 09:15 Potassium Chloride 20 Meq Er Tablet PO 09/15/24 09:16 ONCE ONE Vit/Calcium/Iron/Folic Ac 1 tab 09/15/24 09:00 Multivit/Min/Pren/Fol Ac/Iron Tablet PO DAILY [facility] Labs Labs: Laboratory Results - last 24 hr 09/14/24 09/14/24 09/15/24 14:51 16:56 06:51 WBC 14.8 H 10.4 H RBC 4.07 L 3.51 L Hgb 13.0 D 11.1 L Hct 37.3 32.6 L MCV 91.6 92.9 MCH 31.9 31.6 MCHC 34.9 34.0 RDW 12.2 12.7 Plt Count 218 182 MPV 11.4 H 11.2 H Immature Gran % (Auto) 0.5 0.5 Neut % (Auto) 94.8 H 78.8 H Lymph % (Auto) 3.0 L 13.8 L [place] % (Auto) 1.6 L 6.2 Eos % (Auto) 0.0 0.3 Baso % (Auto) 0.1 L 0.4 Lymph # (Auto) 0.44 L 1.43 [place] # (Auto) 0.2 0.6 Eos # (Auto) 0.0 0.0 Baso # (Auto) 0.0 0.0 Abs Immat Gran (auto) 0.07 H 0.05 H Absolute Neuts (auto) 14.0 H 8.2 H Absolute Nucleated RBC 0.000 0.000 Nucleated RBC % 0.0 0.0 Sodium 137 139 Potassium 3.9 3.2 L Chloride 102 107 Carbon Dioxide 24 22 Anion Gap 11 10 BUN 11 7 Creatinine 0.80 0.60 L Estim Creat Clear Calc 79 112 Estimated GFR > 60 > 60 Glucose 142 H 170 H Lactic Acid 1.2 Calcium 9.6 8.7 C-Reactive Protein 14.1 H Quality If No VTE Prophylaxis Answer both mechanical and pharmacologic: Reason no mechanical VTE proph: low risk/not indicated Reason no pharmacologic proph: low risk/not indicated
[2024-09-15 09:31] LABS: Hemoglobin A1C 5.2 % (<5.7)
[2024-09-15] MEDS: POTASSIUM CHLORIDE 20 MEQ ER TABLET 40 MEQ PO (09:50)
[2024-09-15] MEDS: MULTIVIT/MIN/PREN/FOL AC/IRON TABLET 1 TAB PO (10:00)
--- NOTE | 2024-09-15 18:12 | PC.NURSE ---
RN called Nahid regarding pt having a low grade fever of 99.9 due to pt having a previous miscarriage and provider informed to continue q4 tylenol prn
[2024-09-16] MEDS: ACETAMINOPHEN 325 MG TABLET 650 MG PO (05:28)
[2024-09-16] MEDS: ceFAZolin 1 GM/NS 50 ML 1 GM/50 ML BAG IVPB (05:28)
[2024-09-16 06:00] VITALS: BP 107/58; PULSE 95; RESP 14; TEMP 37.1; O2SAT 99
[2024-09-16 07:41] LABS: Basophils Percent Auto 0.4 % (0.2-1.2); Eosinophils Absolute Auto 0.1 K/mm3 (0-0.3); Eosinophils Percent Auto 1.1 % (0-4.4); Hematocrit 35.7 % (37.0-47.0); Hemoglobin 11.8 g/dL (12.0-15.0); Immature Granulocyte Absolute 0.05 K/mm3 (0.00-0.031); Immature Granulocyte Percent A 0.5 % (0-0.5); Lymphocytes Absolute Auto 1.81 K/mm3 (0.9-3.2); Lymphocytes Percent Auto 16.7 % (18.3-44.2); Mean Corpuscular HGB Conc 33.1 g/dl (32-36); Mean Corpuscular Hemoglobin 31.4 pg (26-34); Mean Corpuscular Volume 94.9 fl (80-100); Mean Platelet Volume 11.6 fl (7.4-10.4); Monocytes Absolute Auto 0.5 K/mm3 (0.1-0.6); Monocytes Percent Auto 4.5 % (2.6-8.5); Neutrophils Absolute Auto 8.4 K/mm3 (1.3-6.7); Neutrophils Percent Auto 76.8 % (45.5-73.1); Platelet Count Result 202 k/mm3 (150-375); Red Blood Count 3.76 M/mm3 (4.2-5.4); Red Cell Distribution Width 12.7 % (11.5-14.5); White Blood Count 10.9 K/mm3 (4.5-10.0)
[2024-09-16 07:42] LABS: Alanine Aminotransferase 17 U/L (6-35); Albumin Level 3.9 g/dL (3.5-5.1); Alkaline Phosphatase 73 U/L (38-126); Anion Gap 9 mmol/L (4-12); Aspartate Amino Transferase 22 U/L (14-36); Bilirubin,Total 0.2 mg/dL (0.2-1.3); Blood Urea Nitrogen 10 mg/dL (7-17); Calcium 9.1 mg/dL (8.4-10.2); Carbon Dioxide 24 mmol/L (22-30); Chloride 105 mmol/L (98-107); Estimated CRCL calculation 112 ml/min; Estimated Glomerular Filt Rate > 60; Glucose 100 mg/dL (65-110); Potassium 3.7 mmol/L (3.4-5.0); Sodium 138 mmol/L (137-145)
[2024-09-16] MEDS: MULTIVIT/MIN/PREN/FOL AC/IRON TABLET 1 TAB PO (09:29)
[2024-09-16 10:41] LABS: Beta HCG Quantitative 755.54 mIU/ML
--- NOTE | 2024-09-16 11:52 | P.DS_ITS ---
DS: Admitting Diagnosis Discharge Date 09/16/2024 Admitting Diagnosis sepsis cellulitis elevated blood sugar DS: Discharge Diagnosis Discharge Diagnosis (1) Sepsis: Qualifiers: Sepsis acute organ dysfunction status: without acute organ dysfunction Sepsis type: sepsis due to unspecified organism Qualified Code(s): A41.9 - Sepsis, unspecified organism Code(s): A41.9 - Sepsis, unspecified organism Status: Acute (2) Cellulitis: Qualifiers: Laterality: left Site of cellulitis: extremity Site of cellulitis of extremity: lower extremity Qualified Code(s): L03.116 - Cellulitis of left lower limb Code(s): L03.90 - Cellulitis, unspecified Status: Acute (3) Elevated blood sugar: Code(s): R73.9 - Hyperglycemia, unspecified Status: Acute DS: Summary Hospital Course Reason for hospitalization: sepsis cellulitis elevated blood sugar Hospital Course: 28 y/o female with PMH of ADHD presents to the hospital with left knee pain and redness. The patient also reports she is newly (found out yesterday) with a last menstrual period of 08/15/24 with TORI of 05/22/25. . Beta HCG positive. Patient was meeting sepsis criteria on admission with tachycardia and leukocytosis. She received 2 liter bolus and was started on IV antibiotics. Tachycardia resolved. An US lower extremity was obtained and showed left infrapatellar subcutaneous edema versus cellulitis without discrete abscess or bursal fluid collection. The cellulitis has since improved. Discussed patient with ID pharmacy for recommendations on antibiotics at discharge. Patient will be discharged on clindamycin to complete her antibiotic course. At time of discharge patient had no complaints. Patient discharged home in a stable condition. She is to continue her antibiotics as prescribed and follow up with her PCP. Status at Discharge Functional status at discharge: independent ambulation Time Spent with Patient Time attestation: Total time spent providing and/or coordinating discharge services: Time spent: Greater than 30 minutes Exam Narrative: AF HR 95 RR 14 Spo2 99 BP 107/58 General: well nourished, well-developed female in no acute respiratory distress who is nontoxic appearing, lying semi recumbent in bed. HEENT: Normocephalic. Atraumatic. Chest: Lungs are clear to auscultation bilaterally. No wheezes or crackles. CV: Heart was regular rate and rhythm. S1-S2. No murmurs, gallops, or rubs. Ext: Improved redness to the left lower extremity just distal to the knee. Slight tenderness to palpation. No warmth noted. No open wounds. 2+ DP pulses bilaterally. Neuro: Patient is alert. Speech is clear. Psych: Normal mood and affect. Patient is pleasant and cooperative. DS: Data Data Completed and Pending Completed studies during hospitalization: soft tissue US Labs on day of discharge: Labs from last 24 hours 09/16/24 09/16/24 06:48 06:44 WBC 10.9 H RBC 3.76 L Hgb 11.8 L Hct 35.7 L MCV 94.9 MCH 31.4 MCHC 33.1 RDW 12.7 Plt Count 202 MPV 11.6 H Immature Gran % (Auto) 0.5 Neut % (Auto) 76.8 H Lymph % (Auto) 16.7 L [place] % (Auto) 4.5 Eos % (Auto) 1.1 Baso % (Auto) 0.4 Lymph # (Auto) 1.81 [place] # (Auto) 0.5 Eos # (Auto) 0.1 Baso # (Auto) 0.0 Abs Immat Gran (auto) 0.05 H Absolute Neuts (auto) 8.4 H Absolute Nucleated RBC 0.000 Nucleated RBC % 0.0 Sodium 138 Potassium 3.7 Chloride 105 Carbon Dioxide 24 Anion Gap 9 BUN 10 Creatinine 0.60 L Estim Creat Clear Calc 112 Estimated GFR > 60 Glucose 100 Calcium 9.1 Total Bilirubin 0.2 AST 22 ALT 17 Alkaline Phosphatase 73 C-Reactive Protein 8.0 H Total Protein 7.0 Albumin 3.9 Beta HCG, Quant 755.54 Preliminary micro results at discharge 09/14/24 19:01 Blood Culture - Preliminary Blood 09/14/24 18:41 Blood Culture - Preliminary Blood Discharge Plan Discharge Attending physician on discharge: Tyshawn Whitfield Discharging Clinician: Lavonne Downs Anticipated Discharge Date/Time: 09/16/24 11:51 Patient Disposition: Home, Self-Care Activity: as tolerated Diet: as tolerated Discharge Instructions: Discharge disposition: Patient admitted to the hospital for worsening cellulitis US did not show any abscess or bursal fluid collection She was started on IV antibiotics during her admission and will be transitioned to oral antibiotics to complete the course Take medications as prescribed even if feeling better Clindamycin every 8 hours, course to be completed on 09/23. Attached is information on this medication Encouraged to continue with yearly vaccinations Return to the emergency department if he developed sudden shortness of breath, chest pain, nausea, vomiting, upset stomach or intractable diarrhea Return to the emergency department if you develop fever greater than 101.5 Follow-up with the primary care physician within 1 weeks Thank you for choosing [facility] for your healthcare needs Patient Instructions: Antibiotic Form, Clindamycin (By mouth), Cellulitis (GEN) Patient Language: Malaysian Stand Alone Forms: General Discharge Information Follow-up/Referrals: Charanjit Go MD [Primary Care Provider] - 1 Week Discharge Medications: New clindamycin HCl 150 mg Capsule 450 mg PO Q8HR 8 Days Qty: 71 0RF Continued prenat.vits,akanksha,yii-qvqw-kcpwc Tablet See Rx Instructions .ROUTE .COMPLEX Rx Instructions: one tablet daily Date of admission: 09/14/24 18:13 Primary Care Provider: Charanjit Go Admitting Provider: Vamshi Fam Attending physician on admission: Lavonne Downs Condition: Stable Hospitalist MIPS Heart Failure (Exclusion) Patient has history of Heart Transplant or Left Ventricular Assistive Device?: No IF YES, STOP HERE Heart Failure (Qualifier) Patient has current or prior documentation of LVEF less than or equal to 40%, or mod/servere depressed LVSF?: No IF NO, STOP HERE
[2024-09-16] MEDS: CLINDAMYCIN HCL 150 MG CAP 450 MG PO (12:41)
== END 2024-09-16 13:30 | disposition home or self-care (01) ==
LOC: ANHED 18:03 → ANH3MEDSUR 19:13
PROVIDERS: Student in an Organized Health Care Education/Training Program; Admitting Provider Internal Medicine; Emergency Provider Physician Assistant; PCP Emergency Medicine; Visit Provider Student in an Organized Health Care Education/Training Program
DX: O98.811 Other maternal infectious and parasitic diseases complicating pregnancy, first trimester (principal); A41.9 Sepsis, unspecified organism; L03.116 Cellulitis of left lower limb; O99.891 Other specified diseases and conditions complicating pregnancy; R73.9 Hyperglycemia, unspecified; O99.341 Other mental disorders complicating pregnancy, first trimester; F90.9 Attention-deficit hyperactivity disorder, unspecified type; F32.9 Major depressive disorder, single episode, unspecified; F41.9 Anxiety disorder, unspecified; Z3A.01 Less than 8 weeks gestation of pregnancy; Z79.899 Other long term (current) drug therapy; Z32.01 Encounter for pregnancy test, result positive
CPT/HCPCS: 36415; 76882; 80048; 80053; 83036; 83605; 84702; 85025; 86140; 87040; 96361; 96365; 96366; 99285; A9270; G0378; J0690; J7030

== ENCOUNTER 2025-05-14 10:18 | Outpatient (CLI) | payer OTHER, SELFPAY ==
--- OUTSIDE RECORDS SUMMARY | 2025-05-14 10:37 | XMS_ITS | Clinical Summary ---
Author Organization [facility] Address [address] [place] [address] Care Team Providers Care Electronic Systems Technician Name Role Phone Charanjit Go MD Primary Care Provider [phone] Allergies Active Allergy Reactions Criticality Noted Date Comments Sulfa Antibiotics Rash Low 08/05/2019 Medications Probiotic Product (PROBIOTIC ADVANCED) Cap Active [id number] 0.18/0.215/0.25 MG-25 MCG tablet Take 1 tablet by mouth daily. 1 Active VYVANSE 40 MG capsule Take 40 mg by mouth daily. 1 Active albuterol sulfate HFA 108 (90 Base) MCG/ACT inhaler Inhale 2 puffs into the lungs every 6 (six) hours as needed for Wheezing. 8 g 2 Active Spacer/Aero-Hol ding Chambers (PRO COMFORT SPACER ADULT) Misc Use with inhaler as needed 1 each 2 Active doxycycline hyclate 100 MG capsule Take 1 capsule (100 mg total) by mouth in the morning and 1 capsule (100 mg total) before bedtime. 20 capsule 2 Active triamcinolone (KENALOG) 0.1 % cream Apply topically 2 (two) times daily. 45 g 2 Active famotidine (PEPCID) 20 MG tablet Take 1 tablet (20 mg total) by mouth 2 (two) times daily. 20 tablet 4 Active Family History Medical History Relation Comments Cancer Father Hypertension Father Relation Status Comments Father Social History Tobacco Use Types Packs/Day Years Used Date Smoking Tobacco: Never Smokeless Tobacco: Never Alcohol Use Standard Drinks/Week Comments Yes 0 (1 standard drink = 0.6 oz pur e alcohol) occasionally AUDIT-C Answer Date Recorded Frequency of Alcohol Consumption Never 08/05/2019 Average Number of Drinks Not on file 019 Frequency of Binge Drinking Not on file 07/15 Comments Unknown Sex and Gender Information Value Date Recorded Sex Assigned at Not on file Legal Sex Female 4:00 PM CDT Gender Identity Not on file Sexual Orientation Not on file Last Filed Vital Signs Vital Sign Reading Time Taken Comments Blood Pressure 133/64 09/13/2024 11:46 AM CDT Pulse 116 09/13/2024 11:46 AM CDT Temperature 37.5 C (99.5 F) 09/13/2024 11:46 AM CDT Respiratory Rate 18 09/13/2024 11:46 AM CDT Oxygen Saturation 99% 09/13/2024 11:46 AM CDT Inhaled Oxygen Concentration - - Weight 68.9 kg (152 lb) 09/13/2024 11:46 AM CDT Height 167.6 cm (5' 6) 09/13/2024 11:46 AM CDT Body Mass Index 24.53 09/13/2024 11:46 AM CDT Plan of Treatment Health Maintenance Due Date Last Done Comments Cervical Cancer Screening Pap Smear (Age 21 to 29) Every 3 Years 1996 Cervical Cancer Screening 1996 Annual Physical 1999 Hepatitis C 2014 COVID-19 Vaccine ( season) 2024 07/02/2021, 06/11/2021 DTaP, Tdap and Td Vaccines (5 - Td or Tdap) 01/04/2027 01/04/2017, 06/25/2007, 04/11/2002, Additional history exists Hepatitis B Vaccines Completed 07/29/1997, 1996, 1996 Meningococcal Vaccine Aged Out 06/23/2008 No yovanny ileana eligible based on patient's age to complete this topic HPV Vaccines Aged Out No longer eligi ble based on patient's age to complete this topic Meningococcal B Vaccine Aged Out No l onger eligible based on patient's age to complete this topic Pneumococcal Vaccine: Pediatrics (0 to 5 Years) and At-Risk Patients (6 to 49 Years) Aged Out No longer eligible based on patient's age to complete this topic RSV Immunizations Under 20 Months Aged Out No longer eligible based on patient's age to complete this topic Insurance [facility] Care Teams Electronic Systems Technician Relationship Specialty Start Date End Date Charanjit Go MD [address] [place] [address] PCP - General INTERNAL MEDICINE 08/05/19
--- OUTSIDE RECORDS SUMMARY | 2025-05-14 10:37 | XMS_ITS | Clinical Summary ---
Author Organization [facility] Address [address] [place] [address] Care Team Providers Care Manufacturer Agent Name Role Phone Unavailable Primary Care Provider Unavailabl e Source Comments [facility],non-owned Affiliates and Associated Physician Practices is amultiple site organization consisting of ambulatory clinics and hospital sitesin [place], [place], [place] and [place]. This disclosure is being madepursuant to the Care Everywhere program and may not contain all information available regarding this patient. Last updated 18.[facility] Immunizations Immunization Administration Dates Next Due INFLUENZA VACCINE, TRIV. (FL UZONE; FLULAVAL; FLUARIX; AFLURIA TRIVALENT; 6MO+), 0.5 ML (IIV3) 08/31/2024 Social History Tobacco Use Types Packs/Day Years Used Date Smoking Tobacco: Never Assessed Comments Unknown Sex and Gender Information Value Date Recorded Sex Assigned at Not on file Legal Sex Female 11:01 AM CDT Gender Identity Not on file Sexual Orientation Not on file Plan of Treatment Health Maintenance Due Date Last Done Comments HIV SCREENING 2011 HEPATITIS C SCREENING 10/23/2014 DTAP/TDAP/TD VACCINES (1 - Tdap) 2015 HEPATITIS B VACCINE (1 of 3 - 19+ 3-dose series) 2015 PAP SMEAR 2017 COVID-19 VACCINE (2023-2 5 season) 2024 DEPRESSION SCREENING 11/13/2024 ZOSTER VACCINE (1 of 2) 2046 INFLUENZA VACCINE Completed 08/31/2024 HIB VACCINE Aged Out No longer eligi ble based on patient's age to complete this topic HPV VACCINE Aged Out No longer eligi ble based on patient's age to complete this topic MENINGOCOCCAL (Group B) VACC INE SHARED DECISION-MAKING Aged Out No longer eligibl e based on patient's age to complete this topic MENINGOCOCCAL GROUPS A/C/Y/W VACCINE Aged Out No longer eligible b ased on patient's age to complete this topic PNEUMOCOCCAL VACCINE Aged Out No long er eligible based on patient's age to complete this topic Insurance [employer] [facility] Address: [facility] [address] [place] [address]
[2025-05-14 10:51] LABS: Hematocrit 34.2 % (37.0-47.0); Hemoglobin 11.1 g/dL (12.0-15.0); Mean Corpuscular HGB Conc 32.5 g/dl (32-36); Mean Corpuscular Hemoglobin 29.3 pg (26-34); Mean Corpuscular Volume 90.2 fl (80-100); Platelet Count Result 213 k/mm3 (150-375); Red Blood Count 3.79 M/mm3 (4.2-5.4); White Blood Count 8.1 K/mm3 (4.5-10.0)
[2025-05-14 11:51] LABS: Syphilis IgG/IgM Antibody Non-Reactive (Nonreactive)
== END 2025-05-14 10:19 | disposition home or self-care (01) ==
LOC: ANHLAB 10:22
PROVIDERS: PCP Emergency Medicine; Visit Provider Obstetrics & Gynecology
DX: Z34.93 Encounter for supervision of normal pregnancy, unspecified, third trimester (principal); Z3A.00 Weeks of gestation of pregnancy not specified
CPT/HCPCS: 36415; 85027; 86593; 86850; 86900; 86901

== ENCOUNTER 2025-05-15 05:35 | Inpatient (IN) | payer OTHER, SELFPAY ==
--- NOTE | 2025-05-13 12:22 | HP_ITS ---
This report was moved to the correct visit on 05/19/2025. The original report was signed by Collins Biggs MD on 05/13/25 1222. H&P: HPI History of Present Illness Date/Time: 05/13/25 12:19 Chief Complaint: Term previous section Narrative: This is a 29-year-old 2 para 1 whose last menstrual acute urine EDC 05/15/2025 presents at 39 weeks gestation for repeat section. Her has been uncomplicated. She is negative for group B strep. She does not opts for trial of labor after . Risks and benefits were reviewed Review of Systems Review of Systems: All systems reviewed & are unremarkable except as noted in HPI and below PMFSH Past Medical History Medical History Missed Term Breech presentation Sepsis Cellulitis Anxiety Allergic rhinitis Dysuria Iron deficiency anemia Mild intermittent asthma without complication Pica in adults Vitamin D deficiency Attention Deficit Hyperactivity Disorder (ADHD) Depression Family History Family History Father Depression Hypertension Bladder cancerSibling Asthma Social History Social History Smoking status: Never smoker Alcohol intake: former Drinks per week: 2 Alcohol use details: NOT RECENTLY Substance use: never Substance use type: does not use Do You Feel Safe in your Home?: Yes Lack of Transportation: No Lack of Food: Never True Current Housing: I Have Housing Concerned About Future Housing: No Difficulty Paying Gas/Electric Bills: No Difficulty Paying for Meds: No Currently Unemployed: No Education: Bachelor's Degree Difficulty w/ Childcare or Family Care: No Living arrangements: with family Spiritual care concerns: No Meds Home Medications and Allergies Home Medications ?Medication ?Instructions ?Recorded ?Confirmed ?Type prenat.vits,akanksha,qaf-plth-rdwvd See Rx Instructions .Route .COMPLEX 09/21/23 05/01/25 History omega-3 fatty acids 2,000 mg PO DAILY 05/01/25 05/01/25 History Allergies Allergy/AdvReac Type Severity Reaction Status Date / Time clavulanic acid Allergy Intermediate RASH Verified 05/01/25 14:31 Exam Narrative: AFHR 95RR 14Spo2 99BP 107/58 General: well nourished, well-developed female in no acute respiratory distress who is nontoxic appearing, lying semi recumbent in bed. HEENT: Normocephalic. Atraumatic. Chest: Lungs are clear to auscultation bilaterally. No wheezes or crackles. CV: Heart was regular rate and rhythm. S1-S2. No murmurs, gallops, or rubs. Ext: Improved redness to the left lower extremity just distal to the knee. Slight tenderness to palpation. No warmth noted. No open wounds. 2+ DP pulses bilaterally. Neuro: Patient is alert. Speech is clear. Psych: Normal mood and affect. Patient is pleasant and cooperative. Const: General: cooperative, healthy appearing and comfortable Nutritional Appearance: average body habitus Orientation/consciousness: oriented to person, oriented to place and oriented to time HENMT: Head: normal to inspection Resp: Effort & Inspection: normal respiratory effort Cardio: Rate: regular rate Rhythm: regular rhythm Heart sounds: S1 normal heart sound present and S2 normal heart sound present GI: Inspection: normal to inspection (Gravid soft uterus) Assessment and Plan Assessment and plan (1) Term : Code(s): Z34.90 - Encounter for supervision of normal , unspecified, unspecified trimester Status: Acute (2) Previous section: Code(s): Z98.891 - History of uterine scar from previous surgery Status: Acute Plan Proceed with low transverse section repeat Please be advised this is a medical document. It is intended for [id number] communication. It is written in medical language and may contain unfamiliar abbreviations or verbiage. Medical documents are intended to carry relevant information, facts as evident, and the clinical opinion of the practitioner at the time of the encounter. This report may have been done utilizing a voice recognition system. Attempts have been made to correct errors. However, there may be uncorrected grammatical, spelling, and recognition errors present. The file time of this note does not necessarily represent the time the patient was seen. Report Initialized date/time: Collins Biggs MD 05/13/252 Electronically signed by: Collins Biggs MD 05/13/25 7000
[2025-05-15] VITALS (66 sets, daily range): BP systolic 108–120; BP diastolic 55–80; PULSE 58–91; RESP 14–19; TEMP 36.2–37; O2SAT 97–100; BMI 29.9
--- OUTSIDE RECORDS SUMMARY | 2025-05-15 05:44 | XMS_ITS | Clinical Summary ---
Author Organization [facility] Address [address] [place] [address] Care Team Providers Care Pad Extraction Tender Name Role Phone Unavailable Primary Care Provider Unavailabl e Source Comments [facility],non-owned Affiliates and Associated Physician Practices is amultiple site organization consisting of ambulatory clinics and hospital sitesin [place], [place], [place] and [place]. This disclosure is being madepursuant to the Care Everywhere program and may not contain all information available regarding this patient. Last updated 18.[facility] Immunizations Immunization Administration Dates Next Due [...]
--- OUTSIDE RECORDS SUMMARY | 2025-05-15 05:44 | XMS_ITS | Clinical Summary ---
Author Organization [facility] Address [address] [place] [address] Care Team Providers Care Flower Machine Operator Name Role Phone Charanjit Go MD Primary Care Provider [phone] Allergies Active Allergy Reactions Criticality Noted Date Comments Sulfa Antibiotics Rash Low 08/05/2019 Medications Probiotic Product (PROBIOTIC ADVANCED) Cap Active [id number] 0.18/0.215/0.25 MG-25 MCG tablet Take 1 tablet [...] patient's age to complete this topic Insurance [facility] Care Teams Flower Machine Operator Relationship Specialty Start Date End Date Charanjit Go MD [address] [place] [address] PCP - General INTERNAL MEDICINE 08/05/19
--- NOTE | 2025-05-15 06:21 | LDADM ---
This patient, Margo Montenegro, was admitted to Labor/Delivery/Recovery 120 on 05/15/25 at 05:35. Plans for labor, pain management and were discussed with patient. Patient/family oriented to hospital policies and general routines including ID bracelet, bed and alarms, visiting hours, pain management, procedures, bathroom and other care routines, personal items, smoking policy, room service/diet and guest tray routines, security routines, and visiting hours. Patient/Family are encouraged to report perceived risks to care and to ask questions if they do not understand what they are told or what they should do. See [facility]BI[facility] for further documentation.
--- NOTE | 2025-05-15 06:22 | WPDHPUPDATE1 ---
History and Physical Update Update Date/Time: 05/15/25 06:22 History and Physical has been reviewed, including an updated exam of the patient. There are NO changes in the patient's condition. Risks, benefits, and alternatives have been discussed and questions answered. Patient agrees to proceed with procedure.
--- NOTE | 2025-05-15 06:23 | PM.DS ---
DS: Admitting Diagnosis Discharge Date 05/16/25 <Alexa Young MD - Last Filed: 05/16/25 10:47> Admitting Diagnosis Term /previous section <Collins Camacho MD - Last Filed: 05/19/25 06:49> DS: Discharge Diagnosis Discharge Diagnosis (1) Term : Code(s): Z34.90 - Encounter for supervision of normal , unspecified, unspecified trimester <Collins Camacho MD - Last Filed: 05/19/25 06:49> Status: Acute <Collins Camacho MD - Last Filed: 05/19/25 06:49> (2) Previous section: Code(s): Z98.891 - History of uterine scar from previous surgery <Collins Camacho MD - Last Filed: 05/19/25 06:49> Status: Acute <Collins Camacho MD - Last Filed: 05/19/25 06:49> DS: Summary Hospital Course Reason for hospitalization: Patient was admitted for repeat low-transverse section on 05/15/2025 <Collins Camacho MD - Last Filed: 05/19/25 06:49> Hospital Course: Patient's hospital course unremarkable. She remained afebrile. She was up, voiding without difficulty, eating regular diet, ambulating, and generally without complaints. <Collins Camacho MD - Last Filed: 05/19/25 06:49> Time Spent with Patient Time attestation: Total time spent providing and/or coordinating discharge services: <Collins Camacho MD - Last Filed: 05/19/25 06:49> Exam Narrative: AF HR 95 RR 14 Spo2 99 BP 107/58 General: well nourished, well-developed female in no acute respiratory distress who is nontoxic appearing, lying semi recumbent in bed. HEENT: Normocephalic. Atraumatic. Chest: Lungs are clear to auscultation bilaterally. No wheezes or crackles. CV: Heart was regular rate and rhythm. S1-S2. No murmurs, gallops, or rubs. Ext: Improved redness to the left lower extremity just distal to the knee. Slight tenderness to palpation. No warmth noted. No open wounds. 2+ DP pulses bilaterally. Neuro: Patient is alert. Speech is clear. Psych: Normal mood and affect. Patient is pleasant and cooperative. <Collins Camacho MD - Last Filed: 05/19/25 06:49> Const: General: cooperative, healthy appearing and comfortable <Collins Camacho MD - Last Filed: 05/19/25 06:49> Nutritional Appearance: average body habitus <Collins Camacho MD - Last Filed: 05/19/25 06:49> Orientation/consciousness: oriented to person, oriented to place and oriented to time <Collins Camacho MD - Last Filed: 05/19/25 06:49> HENMT: Head: normal to inspection <Collins Camacho MD - Last Filed: 05/19/25 06:49> Resp: Effort & Inspection: normal respiratory effort <Collins Camacho MD - Last Filed: 05/19/25 06:49> Cardio: Rate: regular rate <Collins Camacho MD - Last Filed: 05/19/25 06:49> Rhythm: regular rhythm <Collins Camacho MD - Last Filed: 05/19/25 06:49> Heart sounds: S1 normal heart sound present and S2 normal heart sound present <Collins Camacho MD - Last Filed: 05/19/25 06:49> GI: Inspection: normal to inspection (Gravid soft uterus) <Collins Camacho MD - Last Filed: 05/19/25 06:49> Discharge Plan Discharge Attending physician on discharge: Collins Biggs <Collins Camacho MD - Last Filed: 05/19/25 06:49> Collins Biggs <Alexa Young MD - Last Filed: 05/16/25 10:47> Discharging Clinician: Alexa Young <Collins Camacho MD - Last Filed: 05/19/25 06:49> Alexa Young <Alexa Young MD - Last Filed: 05/16/25 10:47> Patient Disposition: Home <Collins Camacho MD - Last Filed: 05/19/25 06:49> Activity: may shower, no straining and pelvic rest <Collins Camacho MD - Last Filed: 05/19/25 06:49> may shower, no straining and pelvic rest <Alexa Young MD - Last Filed: 05/16/25 10:47> Diet: heart healthy <Collins Camacho MD - Last Filed: 05/19/25 06:49> heart healthy <Alexa Young MD - Last Filed: 05/16/25 10:47> Wound Care Instructions: follow printed instructions <Collins Camacho MD - Last Filed: 05/19/25 06:49> follow printed instructions <Alexa Young MD - Last Filed: 05/16/25 10:47> Discharge Instructions: Education: Mom and Baby Guide Given to: Mother Follow-Up: Call your delivering provider's office for an appointment to be seen in: Call for appointment Mom and baby should come to the [facility] for the follow-up appointment. Appointment Date/Time: May 19, 2025 at 10:00 am What to expect at your follow-up visit: Physical Assessment Call [phone] if you are unable to keep your appointment time. BREAST CARE: * Wear a snug supportive bra. * For engorgement discomfort: Breast Feeding: * Apply warm moist washcloths * Express milk as needed to relieve engorgement * Wear loose clothing * For sore nipples: * Identify correct latch-on * Apply warm moist washcloths before and after nursing * Air dry nipples after nursing * May apply Lansinoh cream to nipples EPISIOTOMY/PERINEAL CARE: * Until bleeding stops, use your gail bottle after urinating * Change your pad frequently throughout the day * No tub baths until seen by your physician - You may shower ACTIVITY: * Rest as much as possible. * Do not exercise or lift anything heavier than your baby (such as laundry or other children.) * Avoid stairs or driving as much as possible. * Do not put anything into the vagina. No douching, tampons, or sexual activity until seen by physician. NOTIFY PHYSICIAN IF YOU HAVE ANY QUESTIONS OR IF ANY OF THE FOLLOWING SYMPTOMS OCCUR: * If your incision becomes red, swollen, or more painful than what you have experienced in the hospital. * If your vaginal bleeding becomes foul smelling. * If your vaginal bleeding becomes more heavy than a period or if your bleeding changes from pink to bright red. However, you may pass an occasional walnut-sized clot once or twice for the first week . * If you experience a sharp, shooting pain in you calves. * If you discover a hard, reddened area on your breast or if you experience flu-like symptoms. DIET: * Eat regular, well-balanced meals. * Drink plenty of fluids daily. If , drink to thirst. <Collins Camacho MD - Last Filed: 05/19/25 06:49> Patient Language: Turkish <Collins Camacho MD - Last Filed: 05/19/25 06:49> Stand Alone Forms: General Discharge Information <Collins Camacho MD - Last Filed: 05/19/25 06:49> Follow-up/Referrals: Collins Biggs MD [Physician] - <Collins Camacho MD - Last Filed: 05/19/25 06:49> Discharge Medications: New oxycodone 10 mg tablet 10 mg PO Q6-8H PRN (Reason: pain) Qty: 10 0RF Rx Instructions: 1/2 tab q 6-8 hours PRN pain Continued prenat.vits,akanksha,uwv-loqn-pzgqd Tablet See Rx Instructions .ROUTE .COMPLEX Rx Instructions: one tablet daily omega-3 fatty acids Capsule 2,000 mg PO DAILY <Collins Camacho MD - Last Filed: 05/19/25 06:49> Date of admission: 05/15/25 05:35 <Collins Camacho MD - Last Filed: 05/19/25 06:49> Primary Care Provider: Charanjit Go <Collins Camacho MD - Last Filed: 05/19/25 06:49> Admitting Provider: Collins Biggs <Collins Camacho MD - Last Filed: 05/19/25 06:49> Attending physician on admission: Collins Biggs <Collins Camacho MD - Last Filed: 05/19/25 06:49> Condition: Stable <Collins Camacho MD - Last Filed: 05/19/25 06:49>
[2025-05-15] MEDS: ACETAMINOPHEN 500 MG TABLET 1000 MG PO ×3 (06:34→21:41)
[2025-05-15] MEDS: LACTATED RINGERS 1,000 ML 125 ML IV CONT (06:43)
--- NOTE | 2025-05-15 07:09 | WPDANESEPPF ---
Anes - Initial Pre Proc Eval Procedure: Operation Date: 05/15/25 07:30 Proposed Procedures p Repeat Section - Collins Camacho MD Date/Time: 05/15/25 07:09 Surgeon: Collins Camacho MD Pre Op Diagnosis: C/S Patient Data Age: 29 Gender: F Height: 1.68 m Weight: 84.1 kg Last Vital Signs Temp 36.6 C 05/15/25 06:00 Pulse 71 05/15/25 07:00 BP 113/73 05/15/25 07:00 Pulse Ox 99 05/15/25 07:08 O2 Del Method Room Air 05/15/25 05:57 Allergies Allergy/AdvReac Type Severity Reaction Status Date / Time clavulanic acid Allergy Intermediate RASH Verified 05/01/25 14:31 Home Medications ?Medication ?Instructions ?Recorded ?Confirmed ?Type prenat.vits,akanksha,exu-gmcq-qkkpo See Rx Instructions .Route .COMPLEX 09/21/23 05/15/25 History omega-3 fatty acids 2,000 mg PO DAILY 05/01/25 05/15/25 History hydrocodone 5 mg-acetaminophen 325 1 tablet PO Q4H PRN pain #20 tabs 05/15/25 Rx mg tablet Laboratory Tests 05/15/25 06:26 Hep Bs Antigen Pending Patient hx anesthesia problems: none Family hx anesthesia problems: none Results Review: All pre-operative results and documents have been reviewed as part of the pre-operative evaluation. FOR[facility]LY [facility], [facility] Past Medical History Medical History Missed Term Breech presentation Sepsis Cellulitis Anxiety Allergic rhinitis Dysuria Iron deficiency anemia Mild intermittent asthma without complication Pica in adults Vitamin D deficiency Attention Deficit Hyperactivity Disorder (ADHD) Depression Family History Family History Father Depression Hypertension Bladder cancer Sibling Asthma Social History Social History Smoking status: Never smoker Second hand tobacco smoke exposure: No Alcohol intake: former Drinks per week: 2 Alcohol use details: NOT RECENTLY Substance use: never Substance use type: does not use Do You Feel Safe in your Home?: Yes Lack of Transportation: No Lack of Food: Never True Current Housing: I Have Housing Concerned About Future Housing: No Difficulty Paying Gas/Electric Bills: No Difficulty Paying for Meds: No Currently Unemployed: No Education: Bachelor's Degree Difficulty w/ Childcare or Family Care: No Living arrangements: with family Spiritual care concerns: No Anes - Eval Final PreProcedure Day of Procedure 05/15/25 07:09 Patient weight: overweight Heart: regular rate and rhythm Lungs: clear to auscultation Airway: Mallampati scale class II Neurological: alert and oriented Last oral intake: >/= 8 hours ASA classification: II Emergent: no Anesthetic plan: proceed Anesthesia type and monitoring: regional spinal and standard monitoring Results Review: All pre-operative results and documents have been reviewed as part of the pre-operative evaluation. Informed Consent: The patient's anesthetic plan and its attendant risks and benefits were discussed with the patient/family/POA. Questions were solicited and answers provided to the satisfaction of the patient/family/POA.
[2025-05-15 07:14] LABS: Hepatitis B Surface Antigen Negative (Negative)
[2025-05-15] MEDS: FAMOTIDINE 20 MG/2 ML VIAL IV PUSH (07:37)
[2025-05-15] MEDS: ONDANSETRON INJ 4 MG/2 ML VIAL IV PUSH (07:37)
--- NOTE | 2025-05-15 08:25 | W.PM.OBCSD ---
OB - Delivery Note Procedure Delivery date: 05/15/25 Pre-op diagnosis: Previous Delivery Post-op Diagnosis: Same Induction method: None Delivery monitor: External FHT Prior to decision for section, ACOG/SMFM labor guidelines were considered and discussed with the patient and staff. Decision made to proceed with the section.: Yes Procedure Performed: Repeat Surgeon: Collins Camacho MD Anesthesia type: Spinal Description of Procedure/Findings: Patient is prepped draped normal sterile fashion placed in supine position. Under spinal anesthetic the abdomen was entered in a Pfannenstiel fashion progressive layers of fascia. Fascia incised midline carried upward outward fashion bilaterally. Underlying muscles sharply dissected. Parietal peritoneum entered by Romi clamps and by sharp dissection. This was carried superiorly and inferiorly the dome of the bladder. Bladder flap formed. Bladder blade returned. A low-transverse incision made head delivered in the AIDA position. Nuchal cord checked noted to be loose x1 and relieved around the occiput. Anterior posterior shoulder delivered spontaneously. Cord clamped x2 and cut infant passed off the table given Apgars of 8 [id number] 9 [id number]. Cord blood was drawn. Placenta delivered intact manually. Uterus delivered from the abdomen wrapped in moist towel. After assuring no membranes or debris remained in the uterus, the uterus was closed with continuous running locking 0 Vicryl from lateral edge to lateral edge. Second imbricating locked running Vicryl was placed. Hemostasis was assured ovaries and tubes appeared within normal limits. Hysterotomy incision inspected 1 last time returned the abdomen. Laps removed and accounted for. Fascia closed with continuous running 0 Vicryl from lateral edge to lateral edge. Irrigation subcutaneous layer and the skin closed with 4 Monocryl glue. QBL sterile 40cc. All sponge, needle counts were correct. There were no immediate complications Estimated Blood Loss: 240 Drains: No Packing: No Pathology: None sent Complications: No immediate complications Condition: Stable Disposition: PACU Baby Date of : 05/15/25 Time of : 08:00 Gestational Age by Date: 39 Infant gender: Female Weight (pounds): 8 Weight (ounces): 9 presentation: vertex position: Right Occiput Anterior Placenta delivery description: Manual Removal Cord Vessel Description: 3 Vessels, Nuchal Cord, Loose and Reduced score one minute: 9 score five minutes: 9
[2025-05-15] MEDS: KETOROLAC 15 MG/ML VIAL (*BKC) IV PUSH ×3 (09:23→21:41)
[2025-05-15] MEDS: LIDOCAINE 5% PATCH 1 PATCH TRANSDERM (09:31)
[2025-05-15] MEDS: OXYTOCIN 30 UNITS/NS 500 ML 30 UNITS/500 ML BAG 125 UNITS IV CONT (09:37)
--- NOTE | 2025-05-15 10:48 | OBPPTRN ---
Patient transferred to post room #[id number] via stretcher. Support person present. Oriented to unit, room, information board, rooming in, admission packet and security measures. Patient verbalizes understanding.
--- NOTE | 2025-05-15 12:45 | PC.NURSE ---
Primary RN requested assistance with . Mom breastfed her 18 month old and is comfortable and confident with . Baby has been sleepy and her blood glucose is WNL. Mom states that baby was latched and nursing for about 5 minutes before I came in and then let go. Baby was in a cradle hold and giving a lot of feeding cues. Baby would open wide and put the nipple in her mouth, but would not close her mouth to make a seal and suckle. Baby was licking and nuzzling the nipple. Mom was working well with baby and did not need any positioning assistance. Patient is encouraged to continue working with baby as she learns to latch and familiarize herself with the breast. It appears that an optimal latch is achievable. Patient is instructed to call out for any additional assistance needed. Primary RN updated.
[2025-05-15] MEDS: DEXTROSE 5%/0.45% SOD CHL 1,000 ML 125 ML IV CONT (13:27)
[2025-05-15] MEDS: SIMETHICONE 80 MG TAB.CHEW PO (15:10)
[2025-05-15] MEDS: DOCUSATE SODIUM 100 MG CAPSULE PO (21:41)
[2025-05-16 00:30] VITALS: BP 106/64; PULSE 64; RESP 18; TEMP 36.6; O2SAT 100
[2025-05-16] MEDS: IBUPROFEN 600 MG TABLET PO ×3 (03:50→15:32)
[2025-05-16] MEDS: ACETAMINOPHEN 500 MG TABLET 1000 MG PO ×3 (03:50→15:32)
[2025-05-16 05:36] LABS: Hematocrit 29.6 % (37.0-47.0); Hemoglobin 9.3 g/dL (12.0-15.0); Immature Granulocyte Percent A 0.5 % (0-0.5); Lymphocytes Absolute Auto 2.09 K/mm3 (0.9-3.2); Mean Corpuscular HGB Conc 31.4 g/dl (32-36); Mean Corpuscular Hemoglobin 29.2 pg (26-34); Mean Corpuscular Volume 93.1 fl (80-100); Nucleated Red Blood Cells Absolute Auto 0.000 K/mm3 (0.0-0.012); Nucleated Red Blood Cells Perc 0.0 % (0.0-0.2); Platelet Count Result 161 k/mm3 (150-375); Red Blood Count 3.18 M/mm3 (4.2-5.4); White Blood Count 11.2 K/mm3 (4.5-10.0)
[2025-05-16 08:05] VITALS: BP 120/70; PULSE 70; RESP 18; TEMP 36.4; O2SAT 100
[2025-05-16] MEDS: SIMETHICONE 80 MG TAB.CHEW PO ×2 (08:09→15:31)
[2025-05-16] MEDS: MULTIVIT/MIN/PREN/FOL AC/IRON TABLET 1 TAB PO (08:09)
[2025-05-16] MEDS: oxyCODONE HCL (*CRX) 5 MG TAB IR PO ×2 (08:09→15:32)
[2025-05-16] MEDS: DOCUSATE SODIUM 100 MG CAPSULE PO (08:09)
--- NOTE | 2025-05-16 10:40 | P.PNOB_ITS ---
OB - PN: Subj Subjective Date/time seen: 05/16/25 10:40 Patient comments: no complaints, pain well controlled and other (wants to go home today) [place] baby status: doing well OB - PN: Obj Data Labs 05/16/25 03:52 Labs: Laboratory Results - last 24 hr 05/16/25 03:52 WBC 11.2 H RBC 3.18 L Hgb 9.3 L Hct 29.6 L MCV 93.1 MCH 29.2 MCHC 31.4 L RDW 13.2 Plt Count 161 MPV 11.9 H Immature Gran % (Auto) 0.5 Neut % (Auto) 72.9 Lymph % (Auto) 18.7 [place] % (Auto) 5.9 Eos % (Auto) 1.7 Baso % (Auto) 0.3 Lymph # (Auto) 2.09 [place] # (Auto) 0.7 H Eos # (Auto) 0.2 Baso # (Auto) 0.0 Abs Immat Gran (auto) 0.06 H Absolute Neuts (auto) 8.1 H Absolute Nucleated RBC 0.000 Nucleated RBC % 0.0 OB - PN A/P Plan day: 1 Plan: routine care and discharge home Time Spent With Patient Time: Total time spent is greater than 50% in coordination of care (as documented) at patient's floor/unit and/or counseling patient: Exam 2 : Bimanual exam- vagina & uterus: other (Uterus firm, nt @U)
--- NOTE | 2025-05-16 12:22 | WPDANLDPN2 ---
Anes-Prog Note L&D Date/Time: 05/16/25 12:22 Comfortable throughout: section Neuraxial method: spinal Epidural/Spinal procedure site: clean & non-tender Neuro status: Neuro function grossly intact. Cardiovascular status: normal Respiratory status: normal Airway patency: baseline Mental status: baseline Post-Op hydration status: normal Vital Signs: Last Vital Signs Temp 97.6 F 05/16/25 08:05 Pulse 70 05/16/25 08:05 Resp 18 05/16/25 08:05 BP 120/70 05/16/25 08:05 Pulse Ox 100 05/16/25 08:05 O2 Del Method Room Air 05/16/25 08:25 Pain score (VAS): 3 I/O: Intake & Output 05/15/25 05/16/25 05/16/25 23:59 07:59 15:59 Intake Total 440 Output Total 1620 550 Balance -1180 -550 Post-procedural complaints: pruritis mild, no treatment Patient feedback: Patient satisfied with anesthetic care.
--- NOTE | 2025-05-16 12:24 | WPDANLDNPN2 ---
Anes-Prog Note L&D-Neuraxial Date/Time: 05/16/25 12:24 Neuraxial medications: intrathecal PF morphine Opiod-related complaints: pruritis mild, no treatment Patient feedback: Patient satisfied with post-operative pain management.
--- NOTE | 2025-05-16 14:12 | PC.NURSE ---
Patient viewed the discharge video Mother & Baby Care, The First Two Weeks. Patient was given the opportunity and encouraged to ask questions. Patient verbalized understanding of information shared and has been given the mother/baby guide for home reference.
[2025-05-19 10:17] VITALS: BP 129/71; PULSE 70; RESP 18; TEMP 36.9; O2SAT 100
--- NOTE | 2025-05-19 16:56 | PC.NURSE ---
Phase II charted times per Marce De removed. This was duplicate charting from Phase I. Times documented were affecting patient charges. All Phase I documentation is accurate.
== END 2025-05-16 16:07 | disposition home or self-care (01) | DRG 788 ==
LOC: ANHLDR 06:25 → ANHOB2 10:50
PROVIDERS: Admitting Provider Obstetrics & Gynecology; PCP Emergency Medicine; Visit Provider Obstetrics & Gynecology
PROC: 10D00Z1 Extraction of Products of Conception, Low, Open Approach (ICD-10-PCS; CPT 59514; principal; 2025-05-15 07:30)
DX: O34.211 Maternal care for low transverse scar from previous cesarean delivery (principal); Z37.0 Single live birth; Z3A.39 39 weeks gestation of pregnancy; O99.824 Streptococcus B carrier state complicating childbirth; O69.81X0 Labor and delivery complicated by cord around neck, without compression, not applicable or unspecified
CPT/HCPCS: 36415; 85025; 85027; 86593; 86850; 86900; 86901; 87340; A9270; J1885; J2274; J2405; J2590; J7120